=== PATIENT | female | born 1965 | race Caucasian/White ===

== ENCOUNTER 2018-06-20 06:01 | Emergency (ER) | payer BC, OTHER ==
[~2018-06-20] VITALS: Ht 165.1 cm; Wt 106.6 kg
[~2018-06-20 06:01] MED LIST: ACYC800 PO; ALBU90OI6 INH; ALLO300 PO; AMLO5 PO; ASCO500 PO; ASPI81CH PO; ATEN25 PO; CENTRUM SILVER1 EAC3 PO; CITA20 PO; CLON.1 PO; COLCRYS0.6 MG PO; DICL25ER PO; DOC250 PO; DOCU100 PO; ESTR2 PO; FLAX PO; GABA400 PO; HYDACE10B PO; LEVFLO500 PO; LIDO5TO TOP; LISHYD2012 PO; LOVA20 PO; LOVA40 PO; MAGOXI400 PO; METO10 PO; METR500 PO; ONDA4ODT MM; OXYACE5T PO; OXYACE7.5T PO; OXYC10TA19 PO; PARO10 PO; PARO20 PO; PROG100; PROG100 PO; PROM25 PO; Pepto-Bism525 MG/15 PO; Prilosec Otc20 MG PO; ROBITUSSIN PO; SACC250C PO; TRAZ50 PO; Voltaren100 GM TOP; ZESTORETIC 20-121 EA PO; ZESTRIL40 MG PO; ZOLP10 PO
[2018-06-20 07:13] LABS: BASOPHILS ABSOLUTE AUTO 0.02 K/mm3 (0.00-0.23); BASOPHILS PERCENT AUTO 0 % (0-2); EOSINOPHILS ABSOLUTE AUTO 0.01 K/mm3 (0.00-0.68); EOSINOPHILS PERCENT AUTO 0 % (0-6); Hematocrit 38.7 % (33.0-51.0); Hemoglobin 12.2 g/dL (11.5-16.0); IMMATURE GRAN ABSOLUTE AUTO 0.03 K/mm3 (0.00-0.10); IMMATURE GRAN PERCENT AUTO 0 % (0-1); LYMPHOCYTES ABSOLUTE AUTO 1.66 K/mm3 (0.84-5.20); LYMPHOCYTES PERCENT AUTO 20 % (21-46); MONOCYTES ABSOLUTE AUTO 0.43 K/mm3 (0.16-1.47); MONOCYTES PERCENT AUTO 5 % (4-13); Mean Corpuscular HGB 28.7 pg (26.0-34.0); Mean Corpuscular HGB Conc 31.5 g/dL (31.5-36.5); Mean Corpuscular Volume 91 fL (80-100); Mean Platelet Volume 11.1 fL (9.1-12.4); NEUTROPHILS ABSOLUTE AUTO 6.09 K/mm3 (1.96-9.15); NEUTROPHILS PERCENT AUTO 74 % (41-73); Platelet Count 220 K/mm3 (150-400); RDW Coefficient Variation 13.6 % (11.7-14.2); RDW Standard Deviation 45.4 fL (35.1-46.3); Red Blood Cell Count 4.25 M/mm3 (3.80-5.20); White Blood Cell Count 8.24 K/mm3 (4.00-11.30)
[2018-06-20 07:36] LABS: Alanine Aminotransfer (ALT/SGP 16 U/L (12-78); Albumin, Blood 3.4 g/dL (3.4-5.0); Albumin/Globulin Ratio 0.9 (0.8-1.8); Alk Phos 114 U/L (50-136); Anion Gap 7 mmol/L (6-16); Aspartate Aminotrans (AST/SGOT 14 U/L (12-37); Bilirubin, Total 0.3 mg/dL (0.1-1.0); Blood Urea Nitrogen 32 mg/dL (8-24); Bun/Creatinine Ratio 34.8 (12.0-20.0); CO2, Blood 26 mmol/L (21-32); Calcium, Blood 8.5 mg/dL (8.5-10.1); Chloride, Blood 101 mmol/L (98-108); Creatinine, Blood 0.92 mg/dL (0.40-1.00); Globulin, Blood 3.9 g/dL (2.2-4.0); Glomerular Filtration Rate >60 (60-); Glucose, Blood 97 mg/dL (70-99); Potassium, Blood 4.2 mmol/L (3.5-5.5); Sodium, Blood 134 mmol/L (136-145); Total Protein, Blood 7.3 g/dL (6.4-8.2); Troponin I <0.015 ng/mL (0.000-0.040)
[2018-06-20] MEDS ORDERED: Bisoprolol-Hct1 EAC2 PO (07:39)
[2018-06-20] MEDS ORDERED: FURO20 PO (07:39)
[2018-06-20] MEDS ORDERED: POTCHL10ER PO (07:39)
[2018-06-20] MEDS ORDERED: Ferrex 150 For1 EACH PO (07:40)
[2018-06-20] MEDS ORDERED: CITA20 PO (07:40)
[2018-06-20] MEDS ORDERED: PARO10 PO (07:40)
[2018-06-20] MEDS ORDERED: TIZANIDINE HCL4 MG PO (07:41)
[2018-06-20] MEDS ORDERED: DOXY100 (07:41)
[2018-06-20] MEDS ORDERED: MIDO5 PO (07:41)
[2018-06-20] MEDS ORDERED: TIROSINT25 MCG PO (07:42)
[2018-06-20] MEDS ORDERED: Norco 5-325 Ta1 EACH PO (08:43)
== END 2018-06-20 09:01 | disposition home or self-care (01) ==
LOC: ER 06:01
PROVIDERS: Emergency Medicine
DX: S52.502A Unspecified fracture of the lower end of left radius, initial encounter for closed fracture (principal); R55 Syncope and collapse; W06.XXXA Fall from bed, initial encounter; I10 Essential (primary) hypertension; Z88.8 Allergy status to other drugs, medicaments and biological substances; Z88.1 Allergy status to other antibiotic agents; Z88.0 Allergy status to penicillin; Z88.2 Allergy status to sulfonamides; Z79.899 Other long term (current) drug therapy; Z79.82 Long term (current) use of aspirin
CPT/HCPCS: 29125; 36415; 71046; 73110; 80053; 84484; 85025; 93005; 93010; 99284-25

== ENCOUNTER 2019-02-19 02:47 | Inpatient (IN) | payer BC, OTHER ==
[~2019-02-19] VITALS: Ht 167.6 cm; Wt 104.3 kg
[~2019-02-19 02:47] MED LIST changes: +Bisoprolol-Hct1 EAC2 PO; +DOXY100; +FURO20 PO; +Ferrex 150 For1 EACH PO; +LISI20 PO; +MIDO5 PO; +Norco 5-325 Ta1 EACH PO; +POTCHL10ER PO; +TIROSINT25 MCG PO; +TIZANIDINE HCL4 MG PO; -ZESTRIL40 MG PO
[2019-02-19] MEDS ORDERED: NORTHERA100 MG PO (03:04)
[2019-02-19] MEDS ORDERED: Percocet 10-321 EACH PO (03:04)
[2019-02-19 03:06] LABS: BASOPHILS ABSOLUTE AUTO 0.04 K/mm3 (0.00-0.23); BASOPHILS PERCENT AUTO 0 % (0-2); EOSINOPHILS ABSOLUTE AUTO 0.02 K/mm3 (0.00-0.68); EOSINOPHILS PERCENT AUTO 0 % (0-6); Hematocrit 38.6 % (33.0-51.0); Hemoglobin 12.2 g/dL (11.5-16.0); IMMATURE GRAN ABSOLUTE AUTO 0.08 K/mm3 (0.00-0.10); IMMATURE GRAN PERCENT AUTO 0 % (0-1); LYMPHOCYTES ABSOLUTE AUTO 3.16 K/mm3 (0.84-5.20); LYMPHOCYTES PERCENT AUTO 15 % (21-46); MONOCYTES ABSOLUTE AUTO 1.53 K/mm3 (0.16-1.47); MONOCYTES PERCENT AUTO 7 % (4-13); Mean Corpuscular HGB 29.8 pg (26.0-34.0); Mean Corpuscular HGB Conc 31.6 g/dL (31.5-36.5); Mean Corpuscular Volume 94 fL (80-100); Mean Platelet Volume 11.6 fL (9.1-12.4); NEUTROPHILS ABSOLUTE AUTO 15.86 K/mm3 (1.96-9.15); NEUTROPHILS PERCENT AUTO 77 % (41-73); Platelet Count 266 K/mm3 (150-400); RDW Coefficient Variation 14.2 % (11.7-14.2); RDW Standard Deviation 48.7 fL (35.1-46.3); White Blood Cell Count 20.69 K/mm3 (4.00-11.30)
[2019-02-19 03:26] LABS: Alanine Aminotransfer (ALT/SGP 32 U/L (12-78); Albumin, Blood 3.9 g/dL (3.4-5.0); Alk Phos 95 U/L (50-136); Anion Gap 15 mmol/L (6-16); Aspartate Aminotrans (AST/SGOT 83 U/L (12-37); Bilirubin, Total 0.4 mg/dL (0.1-1.0); Blood Urea Nitrogen 77 mg/dL (8-24); Bun/Creatinine Ratio 12.9 (12.0-20.0); CO2, Blood 21 mmol/L (21-32); Calcium, Blood 8.8 mg/dL (8.5-10.1); Chloride, Blood 100 mmol/L (98-108); Creatinine, Blood 5.96 mg/dL (0.40-1.00); Globulin, Blood 3.8 g/dL (2.2-4.0); Glomerular Filtration Rate 8 (60-); Glucose, Blood 105 mg/dL (70-99); Magnesium, Blood 2.3 mg/dL (1.6-2.4); Potassium, Blood 5.7 mmol/L (3.5-5.5); Sodium, Blood 136 mmol/L (136-145); Total Protein, Blood 7.7 g/dL (6.4-8.2); Troponin I <0.015 ng/mL (0.000-0.040)
[2019-02-19 04:28] LABS: Creatine Kinase MB 29.8 ng/mL (0.0-3.6)
[2019-02-19 04:38] LABS: Creatine Kinase MB Index 1.4 (0.0-4.0)
[2019-02-19 05:41] LABS: PCO2 Arterial 36.1 mmHg (35-45); PO2 Arterial 102 mmHg (80-100); pH Blood Arterial 7.26 (7.35-7.45)
--- NOTE | 2019-02-19 05:45 | NUR ---
PT ARRIVED TO ICU 12 FROM ER VIA [facility]. ACCOMPANIED BY HOME ENERGY CONSULTANT SUPERVISOR. PT MOVES SELF TO BED FROM [facility]. PT HAS VERY SPASTIC MOVEMENT OF ARMS AND LEGS. STATES THIS HAS BEEN GOING ON FOR AWHILE. ALSO WORKING MOUTH. PT IS LABILE WITH EMOTIONS. CRIES AT TIMES AND TALKS VERY FAST. PT STATES SHE HAS BEEN FALLING AT HOME DUE TO SPASTIC MOVEMENT. AT BEDSIDE.
--- NOTE | 2019-02-19 07:40 | NUR ---
CALLED DR. RODGERS 2X BUT CALL WENT TO VOICEMAIL, TRYING TO CALL CRITICAL PH AT 0623. DR. PYLE CALLED TO CHECK ON PT AND WAS INFORMED OF CRITICAL PH.
[2019-02-19] MEDS ORDERED: OXYC10ER PO (08:19)
[2019-02-19] MEDS ORDERED: ALLO300 PO (08:24)
[2019-02-19] MEDS ORDERED: ESTR2 (08:26)
--- NOTE | 2019-02-19 08:58 | NUR ---
CALL PLACED TO DR RODGERS RE BLADDER SCAN RESULT OF 600MLS. ORDER TO PLACE ALFARO.
--- NOTE | 2019-02-19 09:00 | NUR ---
INITIAL ASSESSMENT: PT ALERT AND ORIENTED TO FAMILY, SELF, SITUATION, PLACE. DENIES ANY PAIN. IS AFEBRILE. PT IS ABLE TO REPOSITION SELF. NEEDS TWO PERSON ASSIST TO STAND. LUNG SOUNDS COURSE THROUGHOUT. PT IS ON RA, NO COMPLAINTS OF SOB. SR, TACHY IN 100S, SBP IN THE 90S. SCDS ARE ON. PT REPORTS RED/SAMEER BM. BLADDER SCAN 600MLS THIS AM. ORDER TO PLACE ALFARO. IV IN RFA INFUSING WITH D5W WITH SODIUM BICARB AT 100MLS/HR. GI PANEL AND OCCULT ORDERED. BED IN LOWEST POSITION, CALL LIGHT WITHIN REACH
[2019-02-19 10:23] LABS: Albumin, Blood 3.3 g/dL (3.4-5.0); Anion Gap 12 mmol/L (6-16); Blood Urea Nitrogen 75 mg/dL (8-24); Bun/Creatinine Ratio 13.9 (12.0-20.0); CO2, Blood 19 mmol/L (21-32); Calcium, Blood 7.6 mg/dL (8.5-10.1); Chloride, Blood 107 mmol/L (98-108); Creatinine, Blood 5.38 mg/dL (0.40-1.00); Glomerular Filtration Rate 9 (60-); Glucose, Blood 119 mg/dL (70-99); Phosphorus, Blood 6.3 mg/dL (2.5-4.9); Potassium, Blood 4.1 mmol/L (3.5-5.5); Sodium, Blood 138 mmol/L (136-145)
[2019-02-19 11:00] LABS: Source, Urine Clean Catch
[2019-02-19 11:03] LABS: Blood, Urine 2+ (Neg); Glucose Qualitative, Urine Neg (Neg); Ketones, Urine 1+ (Neg); Leukocyte Esterase, Urine Neg (Neg); Nitrite, Urine Neg (Neg); Protein, Urine 2+ (Neg); Urobilinogen, Urine NORM (Normal)
[2019-02-19] MEDS ORDERED: BUSP10 PO (11:16)
[2019-02-19] MEDS ORDERED: BACL10 PO (11:18)
[2019-02-19] MEDS ORDERED: BENZ100A PO (11:21)
[2019-02-19] MEDS ORDERED: ACYC800 PO (11:23)
[2019-02-19] MEDS ORDERED: GABA400 PO (11:27)
[2019-02-19] MEDS ORDERED: Bisoprolol Fumar5 MG PO (11:31)
[2019-02-19] MEDS ORDERED: ESTR2 PO (11:34)
[2019-02-19 11:42] LABS: Appearance, Urine Hazy (Clear); Color, Urine Yellow (P-Yellow)
[2019-02-19 11:43] LABS: Bilirubin, Urine 2+ (Neg)
[2019-02-19 11:48] LABS: U Amphetamine Screen DETECTED; U Barbituate Screen Not Detected; U Benzodiazapine Screen Not Detected; U Buprenorphine Screen Not Detected; U Cannabinoids Screen Not Detected; U Cocaine Screen Not Detected; U Methadone Screen Not Detected; U Methamphetamine Screen DETECTED; U Opiates Screen DETECTED; U Oxycodone Screen Not Detected; U Phencyclidine Screen Not Detected; U Propoxyphene Screen Not Detected
[2019-02-19 11:52] LABS: Red Blood Cells, Urine 0-2 /hpf (0-2); White Blood Cells, Urine Not Seen /hpf (0-5)
[2019-02-19 11:53] LABS: Amorphous Mod (0-Heavy); Bacteria Not Seen /hpf; Hyaline Casts TNTC /lpf (0-2); Mucus Heavy (0-Heavy); Squamous Epithelial Cells Mod /hpf (Few)
--- NOTE | 2019-02-19 12:44 | NUR ---
CALL PLACED TO DR LAST RE PT UPDATE. 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 NO ORDERS RECEIVED AT THIS TIME. DR. LAST STATED THAT HE WOULD BE IN THIS AFTERNOON TO SEE THE PATIENT.
--- NOTE | 2019-02-19 13:08 | NUR ---
CALL PLACED TO DR. RODGERS RE LAB UPDATE: K+ 4.0, CO2 21. TELEPHONE ORDER RECEIVED TO DECREASE BICARB TO 75 MLS/HR.
--- NOTE | 2019-02-19 13:55 | NUR ---
DR. LAST IN TO SEE PT. INFORMED PT AND OF + UA FOR METH. PT REPORTS SHE DOES NOT KNOW HOW METH GOT INTO HER SYSTEM AND INDICATED THAT THE ONLY PERSON SHE HAS SEEN IN THE LAST FEW DAYS IS A FRIEND. ORDERS FROM DR. LAST RECEIVED FOR RENAL ULTRASOUND AND MEDICATION TO HELP RELAX THE PATIENT.
--- NOTE | 2019-02-19 15:52 | NUR ---
CALL PLACED TO DR. LAST RE OXYCODONE AND ABD CT SCAN. ORDER RECEIVED TO START OXYCODONE HOME DOSE AND SC ABD CT SCAN
--- NOTE | 2019-02-19 18:26 | NUR ---
SHIFT SUMMARY: PT A&O X 3 HOWEVER FORGETFUL AT TIMES, ANXIOUS. AFEBRILE. C/O 8/10 PAIN. LUNG SOUNDS COURSE THROUGHOUT, SATTING >90% ON RA. PT IN SR/ST. SBP IN THE 110-120S, HR TACHY 100-110S. PT REPORTS RED/SAMEER STOOL YESTERDAY HOWEVER NO BM TODAY. BOWEL TONES ARE PRESENT. BLADDER SCAN THIS AM REVEALED 600MLS RETAINED URINE, ALFARO PLACED. ALFARO IS PATENT DRAINING DARK YELLOW URINE. 20G IVS TO RFA AND ANGE. RFA IV INFUSING D5W WITH SODIUM BICARB AT 75ML/HR. GI PANEL AND OCCULT GUAC ORDERED-STILL NEEDS COLLECTING. FAMILY AT BEDSIDE THE MAJORITY OF DAY. BED LOW, CALL LIGHT IN REACH.
--- NOTE | 2019-02-19 18:45 | NUR ---
PT APPEARS TO BE SLEEPING, NO JERKY, SPASTIC MOVEMENTS AT THIS TIME.
--- NOTE | 2019-02-19 18:55 | NUR ---
I AGREE WITH VIJAY TALAVERA'S NOTES.
[2019-02-19 19:39] LABS: Eosinophils-Raw #,Urine 0
--- NOTE | 2019-02-19 20:00 | NUR ---
PT IS SLEEPING. DIFFICULT TO AROUSE AND IS CLAMMY. WILL AROUSE WITH STERNAL RUB BUT QUICKLY FALLS BACK TO SLEEP. BP IS LOW HAVE A 250ML BOLUS RUNNING TO SEE IF THAT HELPS, WILL BE CONTACTING MD. PT AND SAY THAT THIS HAS BEEN AN ONGOING ISSUE AT NIGHT AT HOME. STATES BP WILL BE IN THE 70'S SYSTOLICALLY AND PT WILL BE DIFFICULT TO AROUSE. MINIMAL URINE OUTPUT WELL. PT DID RECEIVE OXYCODONE AND ATIVAN THIS EVENING AND HAD NOT SLEPT MUCH IN THE LAST FEW DAYS DUE TO SPASTIC MOVEMENTS.
--- NOTE | 2019-02-19 20:45 | NUR ---
CALLED DR. SMILEY TO LET HIM KNOW BP IS LOW AND PT IS DIFFICULT TO AROUSE. NEW ORDERS FOR LR BOLUS RECEIVED.
--- NOTE | 2019-02-19 22:30 | NUR ---
CALLED DR. SMILEY AGAIN ABOUT BP CONTINUING TO BE LOW AFTER 1L BOLUS. ANOTHER BOLUS WAS ORDERED AND STARTED. CALLED DR. RODGERS PER DR. SMILEY WHO ORDERED ANOTHER BOLUS AND HOME NORTHERA DOSE. WILL CALL TO SEE IF HE CAN BRING THAT MEDICATION IN FROM HOME TONIGHT. PT IS STILL DIFFICULT TO AROUSE BUT MAINTAINING AIRWAY.
--- NOTE | 2019-02-19 22:36 | NUR ---
CALLED WILIAM THE AND HE WILL BRING MICHAEL IN TONIGHT.
[2019-02-19 23:03] LABS: Albumin, Blood 2.7 g/dL (3.4-5.0); Anion Gap 9 mmol/L (6-16); Blood Urea Nitrogen 72 mg/dL (8-24); Bun/Creatinine Ratio 18.5 (12.0-20.0); CO2, Blood 24 mmol/L (21-32); Calcium, Blood 7.3 mg/dL (8.5-10.1); Chloride, Blood 106 mmol/L (98-108); Creatinine, Blood 3.89 mg/dL (0.40-1.00); Glomerular Filtration Rate 13 (60-); Glucose, Blood 150 mg/dL (70-99); Phosphorus, Blood 3.6 mg/dL (2.5-4.9); Potassium, Blood 3.4 mmol/L (3.5-5.5); Sodium, Blood 139 mmol/L (136-145)
--- NOTE | 2019-02-19 23:14 | NUR ---
CALLED DR. RODGERS TO REPORT LAB RESULTS. NEW ORDERS FOR MAINTENANCE FLUIDS TO BE CHANGED TO LR AT 100ML/HR. WILL START WHEN BOLUS IS COMPLETE. LABS ORDERED FOR AM.
--- NOTE | 2019-02-19 23:53 | NUR ---
BROUGHT IN [facility]. DOSE GIVEN. PT IS EASIER TO AROUSE FROM SLEEP NOW. SLIGHTLY CONFUSED AND CONVERSATION DOESN'T ALWAYS MAKE SENSE.
--- NOTE | 2019-02-20 01:43 | NUR ---
PT IS HYOTENSIVE WITH SBP IN THE 80'S WHILE SLEEPING. WHEN WOKE UP FOR BP SBP IS IN THE 100'S. URINE OUTPUT IS IMPROVING.
--- NOTE | 2019-02-20 02:11 | NUR ---
NOTIFED DR. PYLE ON HYPOTENSION. NEW ORDERS TO INCREASE LR TO 125ML/HR, HAVE PICC PLACED IN AM IF STILL HYPOTENSIVE, AND D/C OXYCODONE AND ATIVAN.
[2019-02-20 03:39] LABS: BASOPHILS ABSOLUTE AUTO 0.03 K/mm3 (0.00-0.23); BASOPHILS PERCENT AUTO 0 % (0-2); EOSINOPHILS ABSOLUTE AUTO 0.06 K/mm3 (0.00-0.68); EOSINOPHILS PERCENT AUTO 1 % (0-6); Hematocrit 31.2 % (33.0-51.0); Hemoglobin 9.9 g/dL (11.5-16.0); IMMATURE GRAN ABSOLUTE AUTO 0.03 K/mm3 (0.00-0.10); IMMATURE GRAN PERCENT AUTO 0 % (0-1); LYMPHOCYTES ABSOLUTE AUTO 2.09 K/mm3 (0.84-5.20); LYMPHOCYTES PERCENT AUTO 20 % (21-46); MONOCYTES PERCENT AUTO 8 % (4-13); Mean Corpuscular HGB 29.8 pg (26.0-34.0); Mean Corpuscular HGB Conc 31.7 g/dL (31.5-36.5); Mean Corpuscular Volume 94 fL (80-100); Mean Platelet Volume 11.3 fL (9.1-12.4); NEUTROPHILS PERCENT AUTO 71 % (41-73); Platelet Count 152 K/mm3 (150-400); RDW Coefficient Variation 14.2 % (11.7-14.2); Red Blood Cell Count 3.32 M/mm3 (3.80-5.20); White Blood Cell Count 10.41 K/mm3 (4.00-11.30)
[2019-02-20 03:56] LABS: Albumin, Blood 2.8 g/dL (3.4-5.0); Albumin/Globulin Ratio 0.9 (0.8-1.8); Bilirubin, Total 0.1 mg/dL (0.1-1.0); Bun/Creatinine Ratio 21.7 (12.0-20.0); C-REACTIVE PROTEIN, EXT RANGE 16.7 mg/dL (0.000-0.300); Calcium, Blood 7.4 mg/dL (8.5-10.1); Creatinine, Blood 2.95 mg/dL (0.40-1.00); Globulin, Blood 3.1 g/dL (2.2-4.0); Magnesium, Blood 1.7 mg/dL (1.6-2.4); Phosphorus, Blood 2.7 mg/dL (2.5-4.9); Potassium, Blood 3.5 mmol/L (3.5-5.5); Total Protein, Blood 5.9 g/dL (6.4-8.2)
--- NOTE | 2019-02-20 06:28 | NUR ---
SUMMARY PT AWAKE AND ORIENTED THIS AM. T/O THE NIGHT PT HAD BEEN DIFFICULT TO AROUSE AND BP HAD BEEN LOW. THIS AM BP HAS IMRPOVED. PT GOT 2.5L OF BOLUS DURING THE NIGHT AND MAINTENENCE FLUIDS INCREASED TO 125ML/HR. RECEIVED HOME DOSE OF NORTHERA WELL. URINE OUTPUT IMPROVED. SPASTIC JERKING MOVEMENTS HAVE DAMPENED WELL. NO SIGN OF DISTRESS.
--- NOTE | 2019-02-20 08:00 | NUR ---
INITIAL ASSESSMENT PATIENT PLAYING ON PHONE, RESTING QUIETLY IN BED UPON ENTERING ROOM. PATIENT ALERT AND ORIENTED X 4, AFEBRILE. INVOLUNTARY, SPASTIC MOVEMENTS MUCH IMPROVED TODAY. PATIENT HAS FULL ROM TO ALL EXTREMITIES. PATIENT IS UNSTEADY ON FEET AND NEEDS 2 PERSON ASSIST TO TRANSFER. PATIENT COMPLAINS OF CHRONIC LOWER BACK PAIN. PATIENT SATTING 90% AND GREATER ON RA. LUNGS CLEAR IN UPPER LOBES AND DIMINISHED IN LOWER LOBES. PATIENT STATES SHE HAS OCCASIONALLY PRODUCTIVE COUGH. STATES SHE HAS BEEN COUGHING UP THICK MUCUS BUT THAT SHE DOESN'T KNOW THE COLOR BECAUSE SHE HAS BEEN SWALLOWING IT. PATIENT IN SR TO ST. HR 90S TO LOW 100S. BP STABLE WITH SBP IN THE 120S. SCDS IN PLACE. PATIENT HAS NOT HAD BM SINCE ADMIT BUT STATES THAT SHE HAD A RED/ SAMEER COLORED BM ON 02/18. ABDOMEN IS MILDLY DISTENDED, SOFT, TENDER TO PALPATION, WITH NORMOACTIVE BS NOTED. ALFARO IN PLACE FOR RETENTION; DRAINING YELLOW/ GREEN COLORED URINE. SCATTERED BRUISES NOTED T/O BODY. OTHERWISE, SKIN APPEARS CLEAN, DRY, INTACT. LR INFUSING AT 125 MLS/ HOUR. BED LOW, CALL LIGHT IN REACH. WILL CONTINUE TO MONITOR PATIENT FREQUENTLY THROUGHOUT SHIFT.
--- NOTE | 2019-02-20 10:39 | NUR ---
DR. LAST HERE TO SEE PATIENT. UPDATED ON PATIENT STATUS. INFORMED THAT PATIENT WAS UP THIS MORNING TO EAT BREAKFAST AND THAT INVOLUNTARY, SPONTANEOUS MOVEMENTS ARE MUCH IMPROVED THIS AM. INFORMED THAT PATIENT WENT BACK TO SLEEP AFTER BREAKFAST. INFORMED THAT PATIENT HAD EPISODES OF HYPOTENSION WHILE SLEEPING ON AQUATIC PERFORMER. INFORMED THAT AQUATIC PERFORMER RN REPORTED PATIENT VERY DIFFICULT TO WAKE FROM SLEEP, JUST AND PATIENT STATED SHE NORMALLY AT HOME. INFORMED THAT PATIENT RECEIVED ONE DOSE OF PRN ATIVAN AND ONE DOSE OF PRN OXYCODONE AT BEDTIME. INFORMED THAT AQUATIC PERFORMER DC'D PRN ATIVAN AND OXYCODONE BELIEVED PATIENT HARD TO WAKE BECAUSE OF THESE MEDS BEING GIVEN. INFORMED THAT PATIENT RECEIVED 2.5 L NS BOLUS, STARTED ON LR AT 125 MLS/ HOUR AND THAT RODGERS RESTARTED HOME MED NORTHERA AT 200 MG TID FOR HYPOTENSION. INFORMED THAT PATIENT HAS NOT BEEN HYPOTENSIVE THIS AM, EVEN THOUGH IS PRESENTLY SLEEPING. TALKED TO DR. LAST ABOUT PATIENT'S HOME MEDICATIONS AND ORDERS RECEIVED TO RESTART SOME THEM. NOW IN ROOM TO SEE PATIENT.
--- NOTE | 2019-02-20 12:24 | NUR ---
PATIENT RESTING QUIETLY IN BED. PATIENT JUST FINISHED LUNCH; ATE 100%. IN ROOM AT BEDSIDE. PATIENT STATES PAIN IS BETTER SINCE RECEIVING OXYCODONE. VITAL SIGNS STABLE. PATIENT CONTINUES TO STATE THAT SHE THINKS SHE GOT METH IN HER SYSTEM FROM A FRIEND PUTTING IT IN HER DRINK. NO ACUTE CHANGES TO NOTE ON AT THIS TIME. WILL CONTINUE TO MONITOR.
--- NOTE | 2019-02-20 16:29 | NUR ---
PATIENT RESTING IN BED QUIETLY, VISITING WITH DAUGHTER AND . VITAL SIGNS STABLE. NO ACUTE CHANGES TO NOTE ON. WILL CONTINUE TO MONITOR.
--- NOTE | 2019-02-20 17:41 | NUR ---
SHIFT SUMMARY PATIENT REMAINED ALERT AND ORIENTED. PATIENT HAD VERY LIGHT INVOLUNTARY SPASTIC MOVEMENTS THIS AM. PATIENT NOW AT BASELINE PER SELF AND FAMILY. PATIENT REMAINED AFEBRILE. PATIENT GIVEN SCHEDULED OXYCODONE FOR CHRONIC LOWER BACK PAIN. PATIENT REMAINED SATTING 90% AND GREATER ON RA. PATIENT REMAINED IN SR TO ST, HR 90S TO LOW 100S. BP REMAINED STABLE. PATIENT DID NOT HAVE BM THIS SHIFT. PATIENT TOLERATING RENAL DIET WELL AND HAS GOOD APPETITE. ALFARO REMAINED DRAINING YELLOW URINE. NO CHANGE IN SKIN. PATIENT REPOSITIONED SELF IN BED T/O SHIFT. LR REMAINS INFUSING AT 125 MLS. PATIENT HAD ECHO THIS SHIFT. OFFERED BED BATH BUT WANTED TO WAIT UNTIL LATER AND THEN FAMILY HERE TO VISIT AGAIN. PATIENT HAS NO COMPLAINTS AT THIS TIME. BED LOW, CALL LIGHT IN REACH. WILL CONTINUE TO MONITOR PATIENT FREQUENTLY UNTIL REPORT GIVEN TO ONCOMING PACKAGING MANAGER NURSE SHORTLY.
--- NOTE | 2019-02-20 19:27 | NUR ---
PT SLEEPING UPON ENTERING ROOM. AROUSES EASILY TO VERBAL. HOLDS NORMAL CONVERSATION AND IS ABLE TO VERBALIZED MEDICATIONS AND WHAT THEY ARE ORDERED FOR. INVOLUNTARY SPASTIC MOVEMENTS HAVE IMPROVED. PT REQUESTING NIGHT MEDS A LITTLE EARLY BECAUSE SHE WANTS TO GET SOME SLEEP. HELD NORTHERA AT THE MOMENT DUE TO BP OUTSIDE OF PARAMETERS. NO SIGN OF DISTRESS AND NO REQUESTS.
[2019-02-21 03:07] LABS: BASOPHILS ABSOLUTE AUTO 0.01 K/mm3 (0.00-0.23); BASOPHILS PERCENT AUTO 0 % (0-2); EOSINOPHILS ABSOLUTE AUTO 0.08 K/mm3 (0.00-0.68); EOSINOPHILS PERCENT AUTO 1 % (0-6); Hematocrit 28.6 % (33.0-51.0); IMMATURE GRAN ABSOLUTE AUTO 0.01 K/mm3 (0.00-0.10); IMMATURE GRAN PERCENT AUTO 0 % (0-1); LYMPHOCYTES ABSOLUTE AUTO 1.66 K/mm3 (0.84-5.20); LYMPHOCYTES PERCENT AUTO 25 % (21-46); MONOCYTES PERCENT AUTO 8 % (4-13); Mean Corpuscular HGB 29.6 pg (26.0-34.0); Mean Corpuscular HGB Conc 31.5 g/dL (31.5-36.5); Mean Corpuscular Volume 94 fL (80-100); Mean Platelet Volume 11.4 fL (9.1-12.4); NEUTROPHILS ABSOLUTE AUTO 4.31 K/mm3 (1.96-9.15); NEUTROPHILS PERCENT AUTO 66 % (41-73); Platelet Count 139 K/mm3 (150-400); RDW Coefficient Variation 14.2 % (11.7-14.2); RDW Standard Deviation 48.4 fL (35.1-46.3); Red Blood Cell Count 3.04 M/mm3 (3.80-5.20); White Blood Cell Count 6.57 K/mm3 (4.00-11.30)
[2019-02-21 03:26] LABS: Alanine Aminotransfer (ALT/SGP 27 U/L (12-78); Albumin, Blood 2.5 g/dL (3.4-5.0); Albumin/Globulin Ratio 0.8 (0.8-1.8); Alk Phos 80 U/L (50-136); Anion Gap 5 mmol/L (6-16); Aspartate Aminotrans (AST/SGOT 39 U/L (12-37); Blood Urea Nitrogen 33 mg/dL (8-24); Bun/Creatinine Ratio 29.5 (12.0-20.0); CO2, Blood 30 mmol/L (21-32); Calcium, Blood 7.9 mg/dL (8.5-10.1); Chloride, Blood 109 mmol/L (98-108); Creatinine, Blood 1.12 mg/dL (0.40-1.00); Globulin, Blood 3.1 g/dL (2.2-4.0); Glomerular Filtration Rate 54 (60-); Glucose, Blood 116 mg/dL (70-99); Magnesium, Blood 1.2 mg/dL (1.6-2.4); Phosphorus, Blood 1.5 mg/dL (2.5-4.9); Potassium, Blood 3.7 mmol/L (3.5-5.5); Sodium, Blood 144 mmol/L (136-145); Total Protein, Blood 5.6 g/dL (6.4-8.2)
[2019-02-21 03:35] LABS: Bilirubin, Total <0.1 mg/dL (0.1-1.0)
--- NOTE | 2019-02-21 06:37 | NUR ---
SUMMARY PT RESTING IN BED. C/O NOT SLEEPING WELL. C/O 9/10 PAIN ALL OVER THIS AM. GAVE OXYCODONE EARLY DUE TO PT BEING "MISERABLE". CALLED DR. RODGERS ABOUT LOW MAG AND PHOS, NEW ORDER RECEIVED FOR SODIUM PHOS IV. PT'S BP ALSO CREEPING UP THIS AM AND LET DR. RODGERS KNOW ABOUT THIS, HE ORDERED 5MG LISINOPRIL. NO OTHER ISSUES OVER NIGHT.
--- NOTE | 2019-02-21 07:05 | NUR ---
ASSUMED CARE PATIENT IS SLEEPING. HAS ASKED NOT TO BE AWAKENED FOR BREAKFAST. HYPERTENSIVE WHILE SLEEPING WITH SBP 180'S. DAILY ZESTRIL HAS BEEN RESTARTED. ALFARO CATHETER IN PLACE D/T URINARY RETENTION. WILL DC WHEN PATIENT IS AWAKE.
--- NOTE | 2019-02-21 07:40 | NUR ---
MD VISIT DR. RODGERS IN. LR DECREASED TO 50 ML/HR.
--- NOTE | 2019-02-21 08:28 | NUR ---
MD VISIT DR Sony MEHTA. REQUEST FOR CONFIRMATION ON URINE TOX (METH)
--- NOTE | 2019-02-21 09:36 | NUR ---
PATIENT INSTRUCTED NOT TO TAKE NORTHERA WITHOUT CHECKING HER BP. SHE REPORTS SHE DOES TAKE HER BP. ALFARO CATHETER REMOVED BY EZEKIEL YING. PIV X1 DC'D WNL. TO THE SHOWER WITH EZEKIEL. PLAN IS FOR DISCHARGE TODAY. ORIGINAL URINE SPECIMEN NOT AVAILABLE TO CONFIRM FOR METHAMPHETAMINE. PATIENT ASKED TO PROVIDE ANOTHER SAMPLE. PHARMACIST REPORTS THAT NORTHERA COULD SHOW AN INITIAL POSITIVE AND LAB ADVISES THAT IT WOULD BE RULED OUT BY THE CONFIRMATION
--- NOTE | 2019-02-21 11:05 | NUR ---
MESSAGE LEFT FOR DR. MEHTA RE: HYPERTENSION
--- NOTE | 2019-02-21 12:36 | NUR ---
IN. DR. MEHTA NOTIFIED THAT HE WOULD LIKE TO TALK TO HIM PRIOR TO DISCHARGE. ADVISED IT MAY BE AFTER 5 PM
--- NOTE | 2019-02-21 14:22 | NUR ---
UPDATED DR. MEHTA ON BP
[2019-02-21] MEDS ORDERED: ACET325 PO (15:07)
--- NOTE | 2019-02-21 15:14 | NUR ---
MD VISIT DR. MEHTA IN TO TALK WITH
--- NOTE | 2019-02-21 15:43 | NUR ---
Per admit trigger, I met with Marci to offer information about Advanced Directive. she took the information and allowed me to pray for continued healing. She is being d/c this afternoon.
--- NOTE | 2019-02-21 15:53 | NUR ---
DISCHARGE INSTRUCTIONS GIVEN AND ACKNOWLEDGED. PIV DC'D WNL. TAKEN IN W/C TO CAR AT FRONT ENTRANCE
== END 2019-02-21 15:30 | disposition home or self-care (01) | DRG 683 ==
LOC: ER 02:47 → ICUW 05:39
PROVIDERS: Emergency Medicine; Hospitalist; Internal Medicine Nephrology; ADMIT Family Medicine
DX: N17.9 Acute kidney failure, unspecified (principal); M62.82 Rhabdomyolysis; F11.20 Opioid dependence, uncomplicated; E87.2 Acidosis; E86.9 Volume depletion, unspecified; F19.90 Other psychoactive substance use, unspecified, uncomplicated; G89.4 Chronic pain syndrome; E87.5 Hyperkalemia; E83.42 Hypomagnesemia; E83.39 Other disorders of phosphorus metabolism; E03.9 Hypothyroidism, unspecified; I12.9 Hypertensive chronic kidney disease with stage 1 through stage 4 chronic kidney disease, or unspecified chronic kidney disease; N18.9 Chronic kidney disease, unspecified; D63.1 Anemia in chronic kidney disease; E21.3 Hyperparathyroidism, unspecified; E86.0 Dehydration; Z88.0 Allergy status to penicillin; Z88.2 Allergy status to sulfonamides; Z88.8 Allergy status to other drugs, medicaments and biological substances; Z79.82 Long term (current) use of aspirin; Z79.899 Other long term (current) drug therapy
CPT/HCPCS: 36415; 36600; 51702; 51798; 71045; 76770; 80053; 80069; 81001; 82140; 82374; 82436; 82550; 82553; 82803; 83605; 83735; 83880; 84100; 84132; 84145; 84300; 84443; 84484; 85025; 85651; 86140; 87040; 87205; 93005; 93010; 93306; 96360; 96361; 99285-25; J0881; J3475; J7030; J7060; J7070; J7120

== ENCOUNTER 2019-04-29 06:22 | Inpatient (IN) | payer BC, OTHER ==
[~2019-04-29] VITALS: Ht 167.6 cm; Wt 98.1 kg
[~2019-04-29 06:22] MED LIST changes: +ACET325 PO; +BACL10 PO; +BENZ100A PO; +BUSP10 PO; +Bisoprolol Fumar5 MG PO; +ESTR2; +NORTHERA100 MG PO; +OXYC10ER PO; +Percocet 10-321 EACH PO
[2019-04-29] MEDS ORDERED: ASPI81CH PO (06:42)
[2019-04-29] MEDS ORDERED: PARO20 PO (06:43)
[2019-04-29] MEDS ORDERED: TIZA4 PO (06:43)
[2019-04-29] MEDS ORDERED: NORTHERA300 MG PO (06:43)
[2019-04-29] MEDS ORDERED: ACYC800 (06:44)
[2019-04-29] MEDS ORDERED: LOVA40 PO (06:44)
[2019-04-29] MEDS ORDERED: MAGNESIUM OXID500 MG PO (06:44)
[2019-04-29] MEDS ORDERED: LISI20 PO (06:44)
[2019-04-29] MEDS ORDERED: OMEPRAZOLE20 MG PO (06:45)
[2019-04-29] MEDS ORDERED: OXYC10ER PO (06:45)
[2019-04-29] MEDS ORDERED: BENZ100A PO (06:47)
[2019-04-29 06:55] LABS: BASOPHILS ABSOLUTE AUTO 0.02 K/mm3 (0.00-0.23); BASOPHILS PERCENT AUTO 0 % (0-2); EOSINOPHILS ABSOLUTE AUTO 0.08 K/mm3 (0.00-0.68); EOSINOPHILS PERCENT AUTO 1 % (0-6); Hematocrit 44.2 % (33.0-51.0); Hemoglobin 14.2 g/dL (11.5-16.0); IMMATURE GRAN ABSOLUTE AUTO 0.01 K/mm3 (0.00-0.10); IMMATURE GRAN PERCENT AUTO 0 % (0-1); LYMPHOCYTES PERCENT AUTO 42 % (21-46); MONOCYTES ABSOLUTE AUTO 0.41 K/mm3 (0.16-1.47); MONOCYTES PERCENT AUTO 6 % (4-13); Mean Corpuscular HGB 29.9 pg (26.0-34.0); Mean Corpuscular HGB Conc 32.1 g/dL (31.5-36.5); Mean Corpuscular Volume 93 fL (80-100); Mean Platelet Volume 11.6 fL (9.1-12.4); NEUTROPHILS ABSOLUTE AUTO 3.62 K/mm3 (1.96-9.15); NEUTROPHILS PERCENT AUTO 51 % (41-73); Platelet Count 240 K/mm3 (150-400); RDW Coefficient Variation 13.2 % (11.7-14.2); RDW Standard Deviation 45.1 fL (35.1-46.3); Red Blood Cell Count 4.75 M/mm3 (3.80-5.20); White Blood Cell Count 7.14 K/mm3 (4.00-11.30)
[2019-04-29 07:09] LABS: Albumin, Blood 4.3 g/dL (3.4-5.0); Bilirubin, Total 0.3 mg/dL (0.1-1.0); Bun/Creatinine Ratio 22.3 (12.0-20.0); Calcium, Blood 9.9 mg/dL (8.5-10.1); Creatinine, Blood 1.03 mg/dL (0.40-1.00); Globulin, Blood 4.2 g/dL (2.2-4.0); Potassium, Blood 4.3 mmol/L (3.5-5.5); Total Protein, Blood 8.5 g/dL (6.4-8.2)
[2019-04-29 08:27] LABS: U Amphetamine Screen Not Detected; U Barbituate Screen Not Detected; U Benzodiazapine Screen Not Detected; U Buprenorphine Screen Not Detected; U Cannabinoids Screen Not Detected; U Cocaine Screen Not Detected; U Methadone Screen Not Detected; U Methamphetamine Screen Not Detected; U Opiates Screen DETECTED; U Oxycodone Screen DETECTED; U Phencyclidine Screen Not Detected; U Propoxyphene Screen Not Detected
--- NOTE | 2019-04-29 08:30 | NUR ---
PT ADMITTED TO UNIT FROM ER AT 0810 FOR ANGIOEDEMA. PT ARRIVES INTUBATED, ETT 7.5, 24 AT LIP. VENT SETTINGS AC 14/400/5/25%. PROPOFOL INFUSING AT 25 MCG/KG/MIN AND VERSED AT 5 MG/HR. TEMP PROBE ALFARO IN PLACED, PATENT AND DRAINING TO GRAVITY. PT'S EYES OPEN SPONTANEOUSLY. PULLING AT RESTRAINTS, ORIENTED TO EVENT AND UNIT. ABLE TO REDIRECT. FOLLOWING DIRECTIONS. SWELLING NOTED TO TONGUE. OGT PLACED, VERIFIED PLACEMENT BY AUSCULTATION, GASTRIC ASPIRATION. PLACED TO LOW INTERMITTANT SUCTION. LUNGS CLEAR. PT P/W/D. ABD ROUND, SOFT, NON TENDER. BT X 4. MAEW. VSS. WILL CONTINUE TO MONITOR.
--- NOTE | 2019-04-29 09:31 | NUR ---
DR SERRA AT BEDSIDE. WILIAM REPORTS HE SAW PT AT 0500 THIS AM c SWELLING TO MOUTH, TONGUE. STATES HE CALLED EMS. REPORTS HX OF SIMILAR SYMPTOMS APPROX 1 YEAR AGO, WAS TOLD THAT WAS D/T MIDODRINE. MEDICATION WAS D/C'D. REPORTS RECENT ADMISSION FOR KIDNEY FAILURE.
--- NOTE | 2019-04-29 12:52 | NUR ---
PT REMAINS INTUBATED. VENT SETTINGS AC 18/400/5/25%. DIFFICULTIES ACHIEVING ADEQUATE SEDATION. CURRENTLY PROPOFOL INFUSING AT 50MCG/KG/HR AND FENTANYL INCREASED FROM 25 MCG/HR TO 50 MCG/HR VIA FENTANYL PUMP. PT APPEARS TO REST WHEN UNDISTURBED, c MINIMAL DISRUPTIONS, PT OPENS EYES, ATTEMPTS TO TALK, SWALLOWS AND GAGS. REQUESTS TO WRITE MESSAGES ON CLIPBOARD. FOLLOWS DIRECTIONS. STAYS CALM AND COOPERATIVE WHILE AWAKE. WILL CONTINUE TO ADJUST FOR ADEQUATE SEDATION.
[2019-04-29 13:28] LABS: Base Excess Venous -0.5 mmol/L; Bicarbonate Venous 23.3 mmol/L (24.0-30.0); PCO2 Venous 49.1 mmHg (38-42); pH Blood Venous 7.32 (7.34-7.37)
--- NOTE | 2019-04-29 14:01 | NUR ---
Spiritual care visit attempted. Upon receiving an admit referral, I attempt to visit patient. Patient is in the process of being sedated and patient's RN recommends coming back when patient is more able to talk . I will continue to remain available to patient and family.
--- NOTE | 2019-04-29 15:34 | NUR ---
CONTINUE TO HAVE DIFFICULTIES c SEDATION. PROPOFOL INFUSING AT 50 MCG/KG/MIN, FENTANYL AT 100 MCG/HR. DISCUSSED c DR SERRA. PLAN TO INCREASE MAX DOSE OF FENTANYL TO 200 MCG/HR. PHARMACY OBTAINING ADDITIONAL BAG D/T HARD LOCK OUT LIMITS ON MAJOR SALES ASSOCIATE. PT CONTINUES TO BE WIDE AWAKE. PRESSING CALL LIGHT. REQUESTING TO WRITE NOTES. ASSISTED MULTIPLE TIMES. MOST REQUESTS ARE FOR FOOD. EDUCATED PT THAT SHE IS UNABLE TO EAT AT THIS TIME. DURING ONE EPISODE, RIGHT WRIST RESTRAINT IS REMOVED SO PT CAN WRITE ON CLIPBOARD, PT REACHES UP FOR ETT. STRONGLY EDUCATED PT ON THE COMPLICATIONS OF SELF EXTUBATION AND THE DIFFICULTIES WE WOULD ENCOUNTER c REINTUBATION. PT APOLOGETIC AND VERBALIZED UNDERSTANDING.
--- NOTE | 2019-04-29 17:10 | NUR ---
SHIFT SUMMARY PT REMAINS INTUBATED AND SEDATED. VENT SETTINGS AC 18/400/5/25%. PT REMAINS A&O, FOLLOWING COMMANDS. CONTINUES TO TRY TO COMMUNICATE c FAMILY AND STAFF. ENCOURAGED PT TO NOT ATTEMPT TO TALK. NEEDS REPETITIVE REMINDERS TO REST VOICE AND NOT ATTEMPT TO TALK. PROVIDED CLIPBOARD AND PEN FOR COMMUNICATION. PT APPERARS TO UNDERSTAND PLAN OF CARE AND POSSIBLE EXTUBATION TOMORROW WELL IMPORTANCE OF NOT SELF EXTUBATING. LUNGS CLEAR. PT NO LONGER DROOLING. SWELLING TO LEFT SIDE OF JAW APPEARS SOFTER AND DECREASED IN SIZE. ATTEMPTED TO GIVE TYLENOL THROUGH OGT FOR FEVER, PT REPORTED NAUSEA, BEGAIN GAGGLING. PLACED OGT TO LOW INTERMITTANT SUCTION AND MEDICATED c ZOFRAN. NASUEA RESOLVED. DR SERRA AT BEDSIDE FOR REASSESSMENT. PLAN TO CONTINUE PROPOFOL AND FENTANYL FOR SEDATION TONIGHT AND PREVENT SELF EXTUBATION. CURRENTLY PROPOFOL INFUSING AT 50 MCG/KG/MIN AND FENTANYL AT MAX DOSE OF 200 MCG/HR. ALFARO PATENT AND DRAINING TO GRAVITY. REPORT TO ONCOMING NURSE.
--- NOTE | 2019-04-29 20:42 | NUR ---
[place] of Care: Care assumed at 1900hr. Patient intubated with 7.0 ETT, 24cm at lip. Ventilator to AC 18/400/5/25%, O2- 94-96% tolerating vent without difficulty. Patient alert, despite Propofol gtt at 50mcg/kg/min, and fentanyl gtt at 200mcg/hr. Patient able mouths words and write needs on paper. Appeared anxious, slightly restless in bed. Per written communication, patient anxious r/t ET tube, restraints, and inability to speak. Patient educated and conveys understanding for the need for ET tube and restraints. Patient also request Ativan. Call placed to Dr. Salazar, received order for prn ativan, x1 dose given approx 2000hr with good effect noted. Patient now appears calm/sleeping. Bilateral peripheral IV's patent and intact, in fusing without difficulty. Temp-probe qureshi patent and intact, draining clear yellow urine. Call light in reach, makes needs known. Will continue to monitor.
[2019-04-30 03:33] LABS: BASOPHILS ABSOLUTE AUTO 0.01 K/mm3 (0.00-0.23); BASOPHILS PERCENT AUTO 0 % (0-2); EOSINOPHILS PERCENT AUTO 0 % (0-6); Hematocrit 33.3 % (33.0-51.0); Hemoglobin 10.7 g/dL (11.5-16.0); IMMATURE GRAN ABSOLUTE AUTO 0.02 K/mm3 (0.00-0.10); IMMATURE GRAN PERCENT AUTO 0 % (0-1); LYMPHOCYTES ABSOLUTE AUTO 1.02 K/mm3 (0.84-5.20); LYMPHOCYTES PERCENT AUTO 12 % (21-46); MONOCYTES ABSOLUTE AUTO 0.18 K/mm3 (0.16-1.47); MONOCYTES PERCENT AUTO 2 % (4-13); Mean Corpuscular HGB 29.6 pg (26.0-34.0); Mean Corpuscular HGB Conc 32.1 g/dL (31.5-36.5); Mean Corpuscular Volume 92 fL (80-100); Mean Platelet Volume 11.2 fL (9.1-12.4); NEUTROPHILS ABSOLUTE AUTO 7.41 K/mm3 (1.96-9.15); NEUTROPHILS PERCENT AUTO 86 % (41-73); Platelet Count 180 K/mm3 (150-400); RDW Standard Deviation 43.1 fL (35.1-46.3); Red Blood Cell Count 3.62 M/mm3 (3.80-5.20); White Blood Cell Count 8.64 K/mm3 (4.00-11.30)
[2019-04-30 03:50] LABS: Anion Gap 10 mmol/L (6-16); Blood Urea Nitrogen 20 mg/dL (8-24); Bun/Creatinine Ratio 23.3 (12.0-20.0); CO2, Blood 20 mmol/L (21-32); Chloride, Blood 110 mmol/L (98-108); Creatinine, Blood 0.86 mg/dL (0.40-1.00); Glomerular Filtration Rate >60 (60-); Glucose, Blood 143 mg/dL (70-99); Potassium, Blood 3.8 mmol/L (3.5-5.5); Sodium, Blood 140 mmol/L (136-145)
--- NOTE | 2019-04-30 06:03 | NUR ---
Shift Summary: Patient slept well throughout shift, following x2 doses of prn Ativan. Continues to rouse to verbal stimuli when sleeping. Remains oriented and able to follow commands, mouths or writes words, makes needs known. Vent remains to AC 18/400/5/25%, tolerated vent without difficulty. VSS, O2-94-98%. Approx 0100hr, Fentanyl gtt decreased from 200mcg/hr to 100mcg/hr, and Propofol gtt decreased to 40mcg/kg/min as patient was sleeping without s/s of restlessness/agitation. Fentanyl gtt then turned off at 0600hr at patient remained calm/cooperative when awake. Appears prn ativan with Propofol gtt is effective to keep patient calm/comfortable, and fentanyl gtt is not needed. ETT cuff leak test this morning by RT Joseph, positive cuff leak noted. Slight swelling remains to lt/anterior neck but slightly decreased throughout shift, no swelling noted to tongue. Peripheral IV's remain patent and intact, infusing without difficulty. Ramesh cath remains patent and intact, draining clear, yellow urine. Calm and comfortable at this time, will monitor until report to days shift RN.
--- NOTE | 2019-04-30 11:34 | NUR ---
EXTUBATE: PT EXTUBATED AT 1110 AFTER SHE DID WELL ON A SBT. DR. SERRA AND RT AT BEDSIDE FOR EXTUBATION. PT INITIALLY WAS DROOLING RIGHT AFTER EXTUBATION SAYING SHE COULDN'T SWALLOW HER SALIVE, BUT THEN SHE DID START TO DO IT AND IS MANAGING SECRETIONS WELL. THROAT IS STILL SWOLLEN, BUT SOFT. PT SAYS IT FEELS LIKE HER TONGUE IS STILL SWOLLEN AND IT DOES APPEAR SLIGHTLY SWOLLEN, BUT PT'S STATES IT IS MUCH IMPROVED. RT PLACED COOL MIST ON PT POST EXTUBATION, BUT PT REFUSED TO KEEP IT ON. SHE STATED IT WAS TOO COLD AND WOULDN'T KEEP IT ON DESPITE WARM BLANKETS AND TURNING THE HEAT UP IN THE ROOM. PT GIVEN INSTRUCTION TO MINIMIZE TALKING AND THAT DR. SERRA ORDERED NPO FOR THE DAY. DR. SERRA ALSO ORDERED A RECEMIC EPI NEB, SEE ORDER AND TO HOLD NOON BENADRYL AND STEROIDS SHE PLANS TO DECREASE THEIR FREQUENCY.
--- NOTE | 2019-04-30 11:58 | NUR ---
REASSESSMENT: PT WAS AGITATED THIS MORNING WHEN HER SHOWED UP BUT CALMED DOWN WITH INCREASE IN PROPOFOL, ATIVAN AND FENTAYL PRN DOSES. SHE THEN WAS ABLE TO REST THROUGHOUT THE MORNING. SHE WAS EXTUBATED AT 1110 AND HAS DONE WELL SO FAR. SHE IS ALERT AND ORIENTED. SPO2 GREATER THAN 90 ON RA. LUNGS ARE CLEAR, NO STRIDOR. NECK IS STILL SWOLLEN, BUT SOFT. TONGUE IS STILL SLIGHTLY SWOLLEN. HTN IMPROVED POST EXTUBATION WITH SBP IN THE 140S NOW, DOWN FROM THE 160S. BOWEL TONES REMAIN HYPOACTIVE, ALFARO DRAINING CL YELLOW URINE. PT'S SPENT MOST OF THE MORNING AT THE BEDSIDE AND HE HAS BEEN FULLY UPDATED. ALL QUESTIONS HAVE BEEN ANSWERED.
--- NOTE | 2019-04-30 17:18 | NUR ---
SHIFT SUMMARY: PT HAS CONTINUED TO DO WELL SINCE BEING EXTUBATED THIS MORNING. SWELLING AROUND HER THROAT REMAINS SOFT. NO STRIDOR. LUNGS ARE CLEAR AND SPO2 GREATER THAN 90 ON RA. SR, SBP ELEVATED IN THE 160S AT TIMES. PT REMAINS NPO PER DR. SERRA. FOELY TO COME OUT THIS EVEING PER DR. SERRA WELL. PT'S CAME BY AND VISITED WITH PT BRIEFLY. WAS UPDATED BY NURSE AND DR. SERRA. ALL QUESTIONS HAVE BEEN ANSWERED. CONTINUING TO MONITOR.
--- NOTE | 2019-04-30 20:03 | NUR ---
[place] of Care: Care assumed at 1900hr. Patient sleeping, easily roused to verbal stimuli. Alert and oriented x4 when awake. Denies dyspnea/SOB, VSS, O2-97-98% on RA. Lt side of neck remains slightly swollen and tender to palpation, but soft. Tongue also slightly swollen, but patient denies any difficulty breathing, both appear less swollen than previous NOC shift. C/o pain to lower back (chronic), tolerable at this time, but patient requested prn fentanyl with routine scheduled HS medications. Peripheral IV's patent and intact. Ramesh catheter removed 1800hr on day shift, denies need to void at this time, will monitor. Call light in reach, makes needs known. Will continue to monitor for pain, safety, comfort.
--- NOTE | 2019-05-01 05:58 | NUR ---
Shift Summary: Patient slept on/off throughout shift. X2 prn Ativan given for c/o and anxiety and difficulty sleeping, good effect noted. Continues to deny dyspnea or SOB, O2-96-98% on RA. No change noted to tongue or neck. Tongue appears large but not swollen. Lt neck appears slightly swollen but soft to palpation. Clear speech throughout shift. C/o pain to back and generalized muscle ache throughout shift, PRN fentanyl given x3-4, patient states fentanyl helpful, but does not fully resolve pain (chronic back pain at baseline). Systolic BP 160's-180's throughout shift, received order per Dr. Ludwig for prn IV Hydralazine, x1 dose given with little effect noted. Then received order per Dr. Ludwig for PRN IV Labetalol, x1 dose given with good effect noted, systolic BP now decreased to 150's. Patient able to transfer to bedside commode this morning via x2 person stand-by, tolerated well. Call light in reach, makes needs known. Will continue to monitor until report to day shift RN.
--- NOTE | 2019-05-01 08:00 | NUR ---
PT SLEEPING RESTFULLY, AT BEDSIDE. VSS. REPORT GIVEN TO DEL LINARES FOR TRANSFER OF CARE.
--- NOTE | 2019-05-01 08:30 | NUR ---
ASSUMED CARE OF PATIENT FROM Brooks DOMINGUEZ RN. SEE ASSESSMENT CHARTING FOR DETAILS. SPOUSE REMAINS AT BEDSIDE; VERY SUPPORTIVE BUT COOPERATIVE WITH STAFF. PATIENT SLEEPING WHEN NOT DISTURBED; SBP MODERATE TOHIGH ELEVATION; MEDICATED INDICATED.
--- NOTE | 2019-05-01 10:05 | NUR ---
DR. JC HERE; DISCUSSED POC WITH PATIENT AND SPOUSE.
--- NOTE | 2019-05-01 10:10 | NUR ---
ASSISTED TO DANGLE POSITION, BY RN, THE OOB; WALKER USED TO TRANSFER TO BSC.
--- NOTE | 2019-05-01 12:00 | NUR ---
CHARGE NURSE, KENNY, SPOKE TO DR. JC; PATIENT CHANGED TO MED. FLOOR STATUS.
--- NOTE | 2019-05-01 12:42 | NUR ---
TO TRANSFER TO ROOM 337 ONCE ROOM IS CLEANED AND REPORT GIVEN.
--- NOTE | 2019-05-01 13:15 | NUR ---
DR. SERRA WANTING PATIENT TO BE EVAL. BY RN FOR SWALLOW SAFETY; IF NO ISSUES TO ORDER SOFT DIET FOR PATIENT.
--- NOTE | 2019-05-01 13:20 | NUR ---
TRIALED WATER, THEN JELLO THEN APPLESAUCE AND THEN YOGURT; NO SWALLOWING ISSUES AND PATIENT MANAGED WELL ON OWN WITHOUT S/SX OF ASPIRATION; ABLE TO FEED SELF AND TOLERATING STRAWS.
--- NOTE | 2019-05-01 13:40 | NUR ---
NORVASC 10MG PO GIVEN TO HELP WITH CHRONIC HYPERTENSIVE ISSUES.
--- NOTE | 2019-05-01 13:45 | NUR ---
REPORT GIVEN TO ANKUSH PAGE RN.
--- NOTE | 2019-05-01 14:00 | NUR ---
TRANSFERRED TO ROOM 337 VIA BED; BELONGINGS, CHART, ETC WITH PATIENT. RN TRANSPORTED PATIENT AND THEN PATIENT TRANSFERRED SELF FROM BED TO BED USING WALKER AND AMBULATING; TOLERATED WELL.
--- NOTE | 2019-05-01 14:38 | NUR ---
PATIENT TRANSFERRED TO THE FLOOR. NO ACUTE CONCERNS AT THIS TIME. SHE HAS BEEN PLEASANT SINCE TRANSFER BUT DID NOTE THAT HER PAIN WAS UP SINCE HER TRANSFER SHE HAD WALKED FROM ONE BED TO ANOTHER. PATIENT HAD FENTANYL AND PAIN WAS BROUGHT DOWN.
--- NOTE | 2019-05-01 17:55 | NUR ---
SHIFT SUMMARY PATIENT WAS AN ICU TRANSFER TODAY. NO ACUTE CONCERNS MINUS PAIN CONTROL. PATIENT HAS BEEN EXTUBATED OF YESTERDAY. SHE DENIES NAUSEA, BUT DOES NOTE THAT SHE IS NOT SWALLOWING WELL. SHE STATES THAT SHE IS STRUGGLING WITH SOME CONSISTENCIES. SHE HAD A BEDSIDE SWALLOW EVAL BY THE NURSE DOWNSTAIRS WHO STATES SHE DID WELL. ALTHOUGH JUST TAKING A SIP OF WATER SHE IS CHOKING A LOT.
--- NOTE | 2019-05-01 20:04 | NUR ---
PT C/O CHRONIC BACK PAIN, DIFFICULTY SLEEP AT NIGHT AND CONCERN FOR MISSING HOME MEDS. ALERTED TO HOME MED LIST, PAIN MEDS TAKEN AT HOME AND CURRENT ADMISSION MEDS. HE STATED HE'D ORDER HER OXYCONTIN, ZANAFLEX, BUSPAR, CELEXA, LEVOTHYROXINE AND A STOOL SOFTENER AT THIS TIME. OTHER MEDS HE DESIRES THE DAY MD'S REEVALUATE IN THE AM. PT MADE AWARE AND IS HAPPY W/THE PLAN. WILL PROVIDE NEW MEDS WHEN AVAILABLE FROM PHARMACY.
[2019-05-02 03:06] LABS: TRYPTASE 3.6 ug/L (2.2-13.2)
--- NOTE | 2019-05-02 05:34 | NUR ---
SUMMARY: A/OX4, COOPERATIVE W/CARE AND CALLS APPROPRIATELY TO SPECIFY NEEDS. PT HAS NO REMAINING S/S ANDGIOEDEMA OR RESP DISTRES. PT'S SPO2 WNL ON RA W/RESPS E/U AND LS CLEAR T/O. PT WAS EXTUBATED ON 04/30/19 PER REPORT. UPON ARRIVAL TO FLOOR MANY HOME MEDS WERE MISSING AND PT HAS HX CHRONIC BACK PAIN, DEPRESSION/ANXIETY SO REQ'D MEDS FOR PAIN, SLEEP AND CONSTIPATION. NEW ORDERS OBTAINED AND MEDS RECIEVED PER EMAR. PROVIDED FURTHER INSTRUCTION TO HAVE DAY STAFF RECONCILE HOME MED LIST SO THEY CAN BE RESUMED TODAY. PT MEDICATED W/ATIVAN PRN, OXYCONTIN AND ZANAFLEX AT HS FOR TOLERABLE PAIN/ANXIETY RELIEF WHICH PROMOTED SLEEP/REST. SHE'S DENIED COMPLAINTS SINCE AND HAS BEEN UP TO [facility] [place] W/SBA FOR VOIDS. NO ACUTE CHANGES, VSS/AFEBRILE. PT TOLERATED PO INTAKE PENDING ST EVAL THIS AM. WCTM AND REPORT TO DAY RN.
[2019-05-02 05:35] LABS: BASOPHILS ABSOLUTE AUTO 0.01 K/mm3 (0.00-0.23); BASOPHILS PERCENT AUTO 0 % (0-2); EOSINOPHILS ABSOLUTE AUTO 0.03 K/mm3 (0.00-0.68); EOSINOPHILS PERCENT AUTO 0 % (0-6); Hematocrit 35.6 % (33.0-51.0); Hemoglobin 11.3 g/dL (11.5-16.0); IMMATURE GRAN ABSOLUTE AUTO 0.02 K/mm3 (0.00-0.10); IMMATURE GRAN PERCENT AUTO 0 % (0-1); LYMPHOCYTES ABSOLUTE AUTO 2.49 K/mm3 (0.84-5.20); LYMPHOCYTES PERCENT AUTO 35 % (21-46); MONOCYTES PERCENT AUTO 7 % (4-13); Mean Corpuscular HGB Conc 31.7 g/dL (31.5-36.5); Mean Corpuscular Volume 91 fL (80-100); Mean Platelet Volume 11.1 fL (9.1-12.4); NEUTROPHILS PERCENT AUTO 57 % (41-73); Platelet Count 191 K/mm3 (150-400); RDW Coefficient Variation 13.2 % (11.7-14.2); RDW Standard Deviation 43.6 fL (35.1-46.3); White Blood Cell Count 7.05 K/mm3 (4.00-11.30)
[2019-05-02 05:56] LABS: Alanine Aminotransfer (ALT/SGP 13 U/L (12-78); Albumin, Blood 3.1 g/dL (3.4-5.0); Albumin/Globulin Ratio 0.9 (0.8-1.8); Alk Phos 67 U/L (50-136); Anion Gap 6 mmol/L (6-16); Aspartate Aminotrans (AST/SGOT 14 U/L (12-37); Bilirubin, Total 0.3 mg/dL (0.1-1.0); Blood Urea Nitrogen 16 mg/dL (8-24); Bun/Creatinine Ratio 24.8 (12.0-20.0); CO2, Blood 27 mmol/L (21-32); Calcium, Blood 8.9 mg/dL (8.5-10.1); Chloride, Blood 107 mmol/L (98-108); Creatinine, Blood 0.65 mg/dL (0.40-1.00); Globulin, Blood 3.3 g/dL (2.2-4.0); Glomerular Filtration Rate >60 (60-); Glucose, Blood 93 mg/dL (70-99); Potassium, Blood 3.6 mmol/L (3.5-5.5); Sodium, Blood 140 mmol/L (136-145); Total Protein, Blood 6.4 g/dL (6.4-8.2)
[2019-05-02] MEDS ORDERED: Bisoprolol Fumar5 MG PO (13:16)
--- NOTE | 2019-05-02 18:24 | NUR ---
PATIENT IS ALERT AND ORIENTED AND COOPERATIVE WITH CARE. SHE CALLS APPROPRIATELY. HAS BEEN AT THE BEDSIDE MOST OF THE DAY. THE PATIENT'S BLOOD PRESSURE HAS BEEN INCREASED. TREATED PER EMAR. THIS EVENING THE PATIENT'S BP IS 190/119. A HEART MONITOR HAS BEEN ORDERED AND PLACED ON THE PATIENTS. METOPROLOL IV HAS BEEN ORDERED. WILL CONTINUE TO MONITOR
--- NOTE | 2019-05-03 00:18 | NUR ---
05/03/19 0015 PT C/O SEVERE HEADACHE WHEN RE-CHECKING HER VITALS EARLIER. ALSO STATES SHE HAS NOT BEEN ABLE TO SLEEP AND IS "JUST NEED TO SLEEP!" RN PAGED ON-CALL MD ABOUT HER CONCERNS. SEE MAR FOR MEDS GIVEN.
--- NOTE | 2019-05-03 03:08 | NUR ---
05/03/19 0300 PT AWAKENED BY HAT BODY SORTER TO CHECK HEART MONITOR LEADS LOOSE. PT WAS SLAAPING AND DENIED ANY S/S. MONITOR PAD RE-APPLIED. DECLINED VITALS SIGNS FOR NOW.
--- NOTE | 2019-05-03 03:35 | NUR ---
05/03/19 0335 PT CALLED GREASE REFINER OPERATOR TO STRAIGHTEN BED LINENS. VITALS TAKE NOW AND EVEN BETTER BP THAN BEFORE. C/O HEADACHE BUT INFORMED NO FURTHER MEDS AVAILABLE FOR NOW. PT NPO FOR PROCEDURE THIS AM.
--- NOTE | 2019-05-03 10:07 | NUR ---
PATIENT REMOVED TELE FROM SELF. I ASKED HER TO PLEASE WEAR IT, SHE REFUSED. RETURNED BOX TO TELE DEPT IN PCU.
[2019-05-03] MEDS ORDERED: METO25ER PO (11:23)
[2019-05-03] MEDS ORDERED: AMLO10 PO (11:32)
[2019-05-03] MEDS ORDERED: PRED20 PO (11:32)
--- NOTE | 2019-05-03 11:53 | NUR ---
patient discharge instructions given verbally and a printed copy. educational material provided. all questions answered. iv removed. patient removed tele earlier this AM. patient was just discharged from building by wheel chair at 1154.
== END 2019-05-03 11:55 | disposition home or self-care (01) | DRG 915 ==
LOC: ER 06:22 → ICUW 07:47 → MEDS 05-01 14:12
PROVIDERS: Emergency Medicine; Internal Medicine Pulmonary Disease; ADMIT Internal Medicine
PROC: 0BH17EZ Insertion of Endotracheal Airway into Trachea, Via Natural or Artificial Opening (ICD-10-PCS; principal; 2019-04-29)
PROC: 5A1945Z Respiratory Ventilation, 24-96 Consecutive Hours (ICD-10-PCS; 2019-04-29)
DX: T78.3XXA Angioneurotic edema, initial encounter (principal); J96.00 Acute respiratory failure, unspecified whether with hypoxia or hypercapnia; I10 Essential (primary) hypertension; J44.9 Chronic obstructive pulmonary disease, unspecified; G89.4 Chronic pain syndrome; M10.9 Gout, unspecified; E78.5 Hyperlipidemia, unspecified; F41.8 Other specified anxiety disorders; R63.0 Anorexia
CPT/HCPCS: 31500; 31720; 36415; 51702; 71045; 80048; 80053; 82803; 82947; 83520; 85025; 86160; 92610; 93005; 93010; 93975; 94002; 94003; 94640; 96361-59; 96372-59; 96374-59; 96375-59; 99291-25; A9270; J0171; J0330; J0360; J1100; J1200; J1650; J2001; J2060; J2250; J2270; J2405; J2704; J2765; J2920; J3010; J7030; J7050; J7512

== ENCOUNTER → 2020-11-25 | Outpatient (CLI) | payer BC, OTHER ==
[~2020-11-25] MED LIST changes: +ACYC800; +ALBU90OI INH; +AMLO10 PO; +ASPI325EC PO; +Adipex-P37.5 MG PO; +BENADRYL25 MG PO; +CALCIUM 600-VI1 EAC2 PO; +DECADRON6 M1 PO; +MAGNESIUM OXID500 MG PO; +METO25ER PO; +NORTHERA300 MG PO; +OMEPRAZOLE20 MG PO; +PRED20 PO; +TIZA4 PO; +VITAMIN D32000 UNI1 PO
[2020-11-27 19:16] LABS: CORONAVIRUS (COVID19) CSH-NRL Positive (Negative)
== END ==
LOC: LAB SHORT 13:15 → LAB 13:15 → LAB EV 13:15
PROVIDERS: Physician Assistant Medical
DX: U07.1 COVID-19 (principal); Z88.0 Allergy status to penicillin; Z88.2 Allergy status to sulfonamides; Z88.8 Allergy status to other drugs, medicaments and biological substances; Z88.6 Allergy status to analgesic agent
CPT/HCPCS: U0003

== ENCOUNTER 2021-02-22 06:50 | Day surgery (SDC) | payer BC, OTHER ==
[~2021-02-22] VITALS: Ht 167.6 cm; Wt 96.6 kg
--- NOTE | 2021-02-22 10:14 | NUR ---
02/22/21 1014 Yaa Tomlin S 0931 PT. DENIES PAIN EXCEPT PT. C/O LEFT EYE HURTING. PT. STATES "FEELS LIKE SOMETHING IS IN MY EYE. PT. LEFT EYE WATERING & REDDENED. DR. BAILEY AWARE & TALKING WITH PT. ABOUT HER LEFT EYE. PT. INSTRUCTED BY DR. BAILEY TO GO TO URGENT CARE IF SHE WAS CONCERNED. DID MENTIONED THAT IT MIGHT HAD GOTTEN RUBBED ON HER PILLOW. DR. BAILEY ALSO NOTIFIED THAT HER BP WAS HIGHER THAT WHEN SHE CAME IN. NO ORDERS GIVEN.
== END 2021-02-22 10:00 | disposition home or self-care (01) ==
LOC: ORSCSDS 06:50
DX: R13.10 Dysphagia, unspecified (principal); K29.70 Gastritis, unspecified, without bleeding; R10.30 Lower abdominal pain, unspecified; Z86.010 Personal history of colon polyps; Z87.19 Personal history of other diseases of the digestive system; D12.3 Benign neoplasm of transverse colon; D12.2 Benign neoplasm of ascending colon; K57.30 Diverticulosis of large intestine without perforation or abscess without bleeding; K64.8 Other hemorrhoids; I10 Essential (primary) hypertension; E78.5 Hyperlipidemia, unspecified; Z79.899 Other long term (current) drug therapy
CPT/HCPCS: 88305; 88342; J2250; J2704; J7120

== ENCOUNTER → 2021-04-19 | Outpatient (CLI) | payer BC, OTHER | END | disposition home or self-care (01) | LOC: LAB SHORT 11:34 | DX: N18.30 Chronic kidney disease, stage 3 unspecified (principal); N39.0 Urinary tract infection, site not specified | CPT/HCPCS: 87086 ==

== ENCOUNTER → 2021-10-15 | Outpatient (CLI) | payer BC, OTHER ==
[2021-10-15 17:04] LABS: Source, Urine Clean Catch
[2021-10-15 19:19] LABS: Appearance, Urine Clear (Clear); Bilirubin, Urine Neg (Neg); Blood, Urine Neg (Neg); Color, Urine Yellow (P-Yellow); Glucose Qualitative, Urine Neg (Neg); Ketones, Urine Neg (Neg); Leukocyte Esterase, Urine Neg (Neg); Nitrite, Urine Neg (Neg); Protein, Urine 2+ (Neg); Urobilinogen, Urine NORM (Normal)
[2021-10-15 19:49] LABS: Bacteria Mod /hpf; Red Blood Cells, Urine 0-2 /hpf (0-2); Squamous Epithelial Cells Few /hpf (Few); White Blood Cells, Urine 0-2 /hpf (0-5)
== END | disposition home or self-care (01) ==
LOC: LAB 16:56 → LAB SHORT 16:56
PROVIDERS: Obstetrics & Gynecology
DX: N39.46 Mixed incontinence (principal)
CPT/HCPCS: 81001; 87086

== ENCOUNTER 2022-02-08 15:35 | Emergency (ER) | payer BC, OTHER ==
[~2022-02-08] VITALS: Ht 172.7 cm; Wt 142.9 kg
[~2022-02-08 15:35] MED LIST changes: +DILTIAZEM 24HR120 M2 PO; +[UNRECOGNIZED DRUG - REMARK] PO
[2022-02-08 16:13] LABS: BASOPHILS ABSOLUTE AUTO 0.03 K/mm3 (0.00-0.23); BASOPHILS PERCENT AUTO 0 % (0-2); EOSINOPHILS ABSOLUTE AUTO 0.27 K/mm3 (0.00-0.68); EOSINOPHILS PERCENT AUTO 3 % (0-6); Hematocrit 32.9 % (33.0-51.0); Hemoglobin 10.7 g/dL (11.5-16.0); IMMATURE GRAN ABSOLUTE AUTO 0.03 K/mm3 (0.00-0.10); IMMATURE GRAN PERCENT AUTO 0 % (0-1); LYMPHOCYTES ABSOLUTE AUTO 1.91 K/mm3 (0.84-5.20); LYMPHOCYTES PERCENT AUTO 22 % (21-46); MONOCYTES ABSOLUTE AUTO 0.59 K/mm3 (0.16-1.47); MONOCYTES PERCENT AUTO 7 % (4-13); Mean Corpuscular HGB 29.2 pg (26.0-34.0); Mean Corpuscular HGB Conc 32.5 g/dL (31.5-36.5); Mean Corpuscular Volume 90 fL (80-100); Mean Platelet Volume 11.1 fL (9.1-12.4); NEUTROPHILS ABSOLUTE AUTO 5.74 K/mm3 (1.96-9.15); NEUTROPHILS PERCENT AUTO 67 % (41-73); Platelet Count 240 K/mm3 (150-400); RDW Coefficient Variation 14.1 % (11.7-14.2); RDW Standard Deviation 46.4 fL (35.1-46.3); Red Blood Cell Count 3.66 M/mm3 (3.80-5.20); White Blood Cell Count 8.57 K/mm3 (4.00-11.30)
[2022-02-08 16:33] LABS: Albumin, Blood 3.1 g/dL (3.4-5.0); Albumin/Globulin Ratio 0.8 (0.8-1.8); Bilirubin, Total 0.1 mg/dL (0.1-1.0); Bun/Creatinine Ratio 30.8 (12.0-20.0); Calcium, Blood 8.5 mg/dL (8.5-10.1); Creatinine, Blood 0.78 mg/dL (0.40-1.00); Globulin, Blood 3.8 g/dL (2.2-4.0); Potassium, Blood 3.3 mmol/L (3.5-5.5); Total Protein, Blood 6.9 g/dL (6.4-8.2)
[2022-02-08] MEDS ORDERED: PRED20 PO (20:34)
[2022-02-08] MEDS ORDERED: BENMENLOZ MM (20:34)
== END 2022-02-08 21:13 | disposition home or self-care (01) ==
LOC: ER 15:35
PROVIDERS: Physician Assistant
DX: R58 Hemorrhage, not elsewhere classified (principal); R13.10 Dysphagia, unspecified; K14.6 Glossodynia; J44.9 Chronic obstructive pulmonary disease, unspecified; I12.9 Hypertensive chronic kidney disease with stage 1 through stage 4 chronic kidney disease, or unspecified chronic kidney disease; N18.9 Chronic kidney disease, unspecified; Z88.8 Allergy status to other drugs, medicaments and biological substances; Z88.0 Allergy status to penicillin; Z88.2 Allergy status to sulfonamides; Z79.82 Long term (current) use of aspirin; Z79.890 Hormone replacement therapy
CPT/HCPCS: 36415; 80053; 85025; A9270; J1200; J2930

== ENCOUNTER 2022-04-08 06:45 | Day surgery (SDC) | payer BC, OTHER ==
[~2022-04-08] VITALS: Ht 165.1 cm; Wt 101.4 kg
[~2022-04-08 06:45] MED LIST changes: +BENMENLOZ MM
== END 2022-04-08 08:44 | disposition home or self-care (01) ==
LOC: ORSCSDS 06:45
PROVIDERS: Ophthalmology
PROC: 08DK3ZZ Extraction of Left Lens, Percutaneous Approach (ICD-10-PCS; principal; 2022-04-08 08:00)
DX: H25.12 Age-related nuclear cataract, left eye (principal); I10 Essential (primary) hypertension; I12.9 Hypertensive chronic kidney disease with stage 1 through stage 4 chronic kidney disease, or unspecified chronic kidney disease; N18.9 Chronic kidney disease, unspecified; J45.909 Unspecified asthma, uncomplicated; M32.9 Systemic lupus erythematosus, unspecified; J44.9 Chronic obstructive pulmonary disease, unspecified; Z79.899 Other long term (current) drug therapy
CPT/HCPCS: J2001; J2250; J3010; J7040; V2632

== ENCOUNTER 2022-08-01 14:29 | Emergency (ER) | payer OTHER ==
[~2022-08-01] VITALS: Ht 167.6 cm; Wt 72.6 kg
[2022-08-01 15:43] LABS: BASOPHILS ABSOLUTE AUTO 0.02 K/mm3 (0.00-0.23); BASOPHILS PERCENT AUTO 0 % (0-2); EOSINOPHILS ABSOLUTE AUTO 0.16 K/mm3 (0.00-0.68); EOSINOPHILS PERCENT AUTO 2 % (0-6); Hematocrit 33.9 % (33.0-51.0); Hemoglobin 11.4 g/dL (11.5-16.0); IMMATURE GRAN ABSOLUTE AUTO 0.01 K/mm3 (0.00-0.10); IMMATURE GRAN PERCENT AUTO 0 % (0-1); LYMPHOCYTES PERCENT AUTO 30 % (21-46); MONOCYTES ABSOLUTE AUTO 0.46 K/mm3 (0.16-1.47); MONOCYTES PERCENT AUTO 7 % (4-13); Mean Corpuscular HGB 28.6 pg (26.0-34.0); Mean Corpuscular HGB Conc 33.6 g/dL (31.5-36.5); Mean Corpuscular Volume 85 fL (80-100); Mean Platelet Volume 11.2 fL (9.1-12.4); NEUTROPHILS ABSOLUTE AUTO 3.93 K/mm3 (1.96-9.15); NEUTROPHILS PERCENT AUTO 60 % (41-73); Platelet Count 211 K/mm3 (150-400); RDW Coefficient Variation 13.5 % (11.7-14.2); RDW Standard Deviation 41.8 fL (35.1-46.3); Red Blood Cell Count 3.99 M/mm3 (3.80-5.20); White Blood Cell Count 6.58 K/mm3 (4.00-11.30)
[2022-08-01 16:04] LABS: Albumin, Blood 3.6 g/dL (3.4-5.0); Albumin/Globulin Ratio 0.9 (0.8-1.8); Bilirubin, Total 0.4 mg/dL (0.1-1.0); Bun/Creatinine Ratio 21.6 (12.0-20.0); Calcium, Blood 9.8 mg/dL (8.5-10.1); Creatinine, Blood 1.16 mg/dL (0.40-1.00); Globulin, Blood 3.9 g/dL (2.2-4.0); Potassium, Blood 2.8 mmol/L (3.5-5.5); Total Protein, Blood 7.5 g/dL (6.4-8.2)
[2022-08-01 18:56] LABS: Source, Urine Clean Catch
[2022-08-01 19:04] LABS: Appearance, Urine Clear (Clear); Bilirubin, Urine Neg (Neg); Blood, Urine Neg (Neg); Color, Urine Yellow (P-Yellow); Glucose Qualitative, Urine Neg (Neg); Ketones, Urine Neg (Neg); Leukocyte Esterase, Urine Neg (Neg); Nitrite, Urine Neg (Neg); Protein, Urine Neg (Neg); Urobilinogen, Urine NORM (Normal)
[2022-08-01 21:14] VITALS: BP 107/96
== END 2022-08-01 21:15 | disposition home or self-care (01) ==
LOC: ER 14:29
PROVIDERS: Physician Assistant
DX: E87.6 Hypokalemia (principal); E87.1 Hypo-osmolality and hyponatremia; E86.0 Dehydration; F11.121 Opioid abuse with intoxication delirium; I12.9 Hypertensive chronic kidney disease with stage 1 through stage 4 chronic kidney disease, or unspecified chronic kidney disease; N18.9 Chronic kidney disease, unspecified; J44.9 Chronic obstructive pulmonary disease, unspecified; M10.9 Gout, unspecified; E78.5 Hyperlipidemia, unspecified; Z88.8 Allergy status to other drugs, medicaments and biological substances; Z88.1 Allergy status to other antibiotic agents; Z88.0 Allergy status to penicillin; Z88.2 Allergy status to sulfonamides; Z79.899 Other long term (current) drug therapy; Z79.82 Long term (current) use of aspirin
CPT/HCPCS: 36415; 71046; 80053; 81003; 84484; 85025; 93005; 93010; 99284-25; A9270; J7030

== ENCOUNTER 2022-10-18 20:30 | Inpatient (IN) | payer OTHER ==
[~2022-10-18] VITALS: Ht 165.1 cm; Wt 92.6 kg
[~2022-10-18 20:30] MED LIST changes: +OMEP20ER PO; -Prilosec Otc20 MG PO
[2022-10-18 21:19] LABS: BASOPHILS ABSOLUTE AUTO 0.03 K/mm3 (0.00-0.23); BASOPHILS PERCENT AUTO 0 % (0-2); EOSINOPHILS ABSOLUTE AUTO 0.14 K/mm3 (0.00-0.68); EOSINOPHILS PERCENT AUTO 2 % (0-6); Hematocrit 41.1 % (33.0-51.0); Hemoglobin 13.7 g/dL (11.5-16.0); IMMATURE GRAN ABSOLUTE AUTO 0.03 K/mm3 (0.00-0.10); IMMATURE GRAN PERCENT AUTO 0 % (0-1); LYMPHOCYTES ABSOLUTE AUTO 2.31 K/mm3 (0.84-5.20); LYMPHOCYTES PERCENT AUTO 27 % (21-46); MONOCYTES ABSOLUTE AUTO 0.53 K/mm3 (0.16-1.47); MONOCYTES PERCENT AUTO 6 % (4-13); Mean Corpuscular HGB 29.2 pg (26.0-34.0); Mean Corpuscular HGB Conc 33.3 g/dL (31.5-36.5); Mean Corpuscular Volume 88 fL (80-100); Mean Platelet Volume 11.3 fL (9.1-12.4); NEUTROPHILS ABSOLUTE AUTO 5.44 K/mm3 (1.96-9.15); NEUTROPHILS PERCENT AUTO 64 % (41-73); Platelet Count 229 K/mm3 (150-400); RDW Coefficient Variation 13.7 % (11.7-14.2); RDW Standard Deviation 43.9 fL (35.1-46.3); Red Blood Cell Count 4.69 M/mm3 (3.80-5.20); White Blood Cell Count 8.48 K/mm3 (4.00-11.30)
[2022-10-18 21:37] LABS: Ethanol (Alcohol), Blood, Med <3 mg/dL; Magnesium, Blood 1.6 mg/dL (1.6-2.4); Salicylate 1.8 mg/dL (2.8-20.0)
[2022-10-18 21:40] LABS: Alanine Aminotransfer (ALT/SGP 37 U/L (12-78); Albumin, Blood 4.1 g/dL (3.4-5.0); Albumin/Globulin Ratio 1.1 (0.8-1.8); Alk Phos 234 U/L (50-136); Anion Gap 9 mmol/L (6-16); Aspartate Aminotrans (AST/SGOT 33 U/L (12-37); Bilirubin, Total 0.2 mg/dL (0.1-1.0); Blood Urea Nitrogen 22 mg/dL (8-24); Bun/Creatinine Ratio 21.8 (12.0-20.0); CO2, Blood 26 mmol/L (21-32); Calcium, Blood 9.4 mg/dL (8.5-10.1); Chloride, Blood 106 mmol/L (98-108); Creatinine, Blood 1.01 mg/dL (0.40-1.00); Globulin, Blood 3.9 g/dL (2.2-4.0); Glomerular Filtration Rate 64 (60-); Glucose, Blood 169 mg/dL (70-99); Phosphorus, Blood 1.3 mg/dL (2.5-4.9); Sodium, Blood 141 mmol/L (136-145)
[2022-10-18 21:41] LABS: Base Excess Venous 3.4 mmol/L; Bicarbonate Venous 26.4 mmol/L (24.0-30.0); PCO2 Venous 48.5 mmHg (38-42); pH Blood Venous 7.38 (7.34-7.37)
[2022-10-18 21:49] LABS: Acetaminophen, Random <2.0 ug/mL (10.0-30.0)
[2022-10-18 22:03] LABS: Source, Urine Straight Cath
[2022-10-18 22:08] LABS: Bilirubin, Urine Neg (Neg); Blood, Urine Neg (Neg); Glucose Qualitative, Urine 1+ (Neg); Ketones, Urine Neg (Neg); Leukocyte Esterase, Urine Neg (Neg); Nitrite, Urine Neg (Neg); Protein, Urine 3+ (Neg); Urobilinogen, Urine NORM (Normal)
[2022-10-18 22:29] LABS: U Amphetamine Screen Not Detected; U Barbituate Screen Not Detected; U Benzodiazapine Screen Not Detected; U Buprenorphine Screen Not Detected; U Cannabinoids Screen DETECTED; U Cocaine Screen Not Detected; U Methadone Screen Not Detected; U Methamphetamine Screen Not Detected; U Opiates Screen Not Detected; U Oxycodone Screen DETECTED; U Phencyclidine Screen Not Detected; U Propoxyphene Screen Not Detected
[2022-10-18 22:31] LABS: Appearance, Urine Clear (Clear); Bacteria Few /hpf; Color, Urine Yellow (P-Yellow); Red Blood Cells, Urine Not Seen /hpf (0-2); Squamous Epithelial Cells Few /hpf (Few); White Blood Cells, Urine Not Seen /hpf (0-5)
[2022-10-19] VITALS (53 sets, daily range): BP systolic 86–205; BP diastolic 70–129
[2022-10-19 03:51] LABS: BASOPHILS ABSOLUTE AUTO 0.03 K/mm3 (0.00-0.23); BASOPHILS PERCENT AUTO 0 % (0-2); EOSINOPHILS ABSOLUTE AUTO 0.06 K/mm3 (0.00-0.68); EOSINOPHILS PERCENT AUTO 1 % (0-6); Hematocrit 35.7 % (33.0-51.0); Hemoglobin 11.6 g/dL (11.5-16.0); IMMATURE GRAN ABSOLUTE AUTO 0.02 K/mm3 (0.00-0.10); IMMATURE GRAN PERCENT AUTO 0 % (0-1); LYMPHOCYTES ABSOLUTE AUTO 2.02 K/mm3 (0.84-5.20); LYMPHOCYTES PERCENT AUTO 29 % (21-46); MONOCYTES ABSOLUTE AUTO 0.55 K/mm3 (0.16-1.47); MONOCYTES PERCENT AUTO 8 % (4-13); Mean Corpuscular HGB 28.7 pg (26.0-34.0); Mean Corpuscular HGB Conc 32.5 g/dL (31.5-36.5); Mean Corpuscular Volume 88 fL (80-100); Mean Platelet Volume 11.1 fL (9.1-12.4); NEUTROPHILS ABSOLUTE AUTO 4.34 K/mm3 (1.96-9.15); NEUTROPHILS PERCENT AUTO 62 % (41-73); Platelet Count 216 K/mm3 (150-400); RDW Coefficient Variation 13.5 % (11.7-14.2); RDW Standard Deviation 44.3 fL (35.1-46.3); Red Blood Cell Count 4.04 M/mm3 (3.80-5.20); White Blood Cell Count 7.02 K/mm3 (4.00-11.30)
[2022-10-19 04:08] LABS: Albumin, Blood 3.4 g/dL (3.4-5.0); Bilirubin, Total 0.2 mg/dL (0.1-1.0); Bun/Creatinine Ratio 20.7 (12.0-20.0); Calcium, Blood 8.9 mg/dL (8.5-10.1); Creatinine, Blood 0.87 mg/dL (0.40-1.00); Globulin, Blood 3.4 g/dL (2.2-4.0); Potassium, Blood 3.2 mmol/L (3.5-5.5); Total Protein, Blood 6.8 g/dL (6.4-8.2)
--- NOTE | 2022-10-19 06:25 | NUR ---
PATIENT ARRIVED FROM ED AT 0230 PATIENT WAS ALERT AND ORIENTED X3. DID NOT KNOW THE SITUATION THAT BROUGHT HER TO THE HOSPITAL. PATIENT IS A POOR HISTORIAN UNABLE TO PROVIDE MEDICATION HISTORY/CURRENT USE. PATIENT HYPERTENSIVE TREATING PER JUN. VS OTHERWISE STABLE. MOVES ALL EXTREMETIES. COMPLAINTS OF PAIN TO TAILBONE FROM FROM.
--- NOTE | 2022-10-19 08:00 | NUR ---
PT ANSWERS TO VOICE, SHE THINKS IT IS THURSDAY. SHE IS COMPLAINING OF COCCYX PAIN, REPOSITIONED WITH HER ASSISTANCE. SAYS SHE HASN'T SLEPT IN DAYS. BP IS STABLE, ALL IVS ON SB. C/O LEG PAIN, RIGHT KNEE. C/O THAT SHE IS "OVERMEDICATED" AND THAT IS WHY SHE IS FALLING IN THE MORNINGS. STATES THAT ER SAID THAT SHE NEEDS HER MEDICATION ADJUSTED.
[2022-10-19 10:21] LABS: PCO2 Arterial 45.5 mmHg (35-45); PO2 Arterial 113 mmHg (80-100); pH Blood Arterial 7.41 (7.35-7.45)
[2022-10-19 10:27] LABS: BASOPHILS ABSOLUTE AUTO 0.04 K/mm3 (0.00-0.23); BASOPHILS PERCENT AUTO 1 % (0-2); EOSINOPHILS ABSOLUTE AUTO 0.09 K/mm3 (0.00-0.68); EOSINOPHILS PERCENT AUTO 1 % (0-6); Hematocrit 42.4 % (33.0-51.0); Hemoglobin 14.3 g/dL (11.5-16.0); IMMATURE GRAN ABSOLUTE AUTO 0.02 K/mm3 (0.00-0.10); IMMATURE GRAN PERCENT AUTO 0 % (0-1); LYMPHOCYTES ABSOLUTE AUTO 2.24 K/mm3 (0.84-5.20); LYMPHOCYTES PERCENT AUTO 31 % (21-46); MONOCYTES ABSOLUTE AUTO 0.36 K/mm3 (0.16-1.47); MONOCYTES PERCENT AUTO 5 % (4-13); Mean Corpuscular HGB 29.2 pg (26.0-34.0); Mean Corpuscular HGB Conc 33.7 g/dL (31.5-36.5); Mean Corpuscular Volume 87 fL (80-100); Mean Platelet Volume 10.7 fL (9.1-12.4); NEUTROPHILS ABSOLUTE AUTO 4.56 K/mm3 (1.96-9.15); NEUTROPHILS PERCENT AUTO 63 % (41-73); Platelet Count 249 K/mm3 (150-400); RDW Coefficient Variation 13.4 % (11.7-14.2); RDW Standard Deviation 42.2 fL (35.1-46.3); White Blood Cell Count 7.31 K/mm3 (4.00-11.30)
[2022-10-19 10:56] LABS: Albumin, Blood 4.2 g/dL (3.4-5.0); Bilirubin, Total 0.3 mg/dL (0.1-1.0); Calcium, Blood 9.6 mg/dL (8.5-10.1); Creatinine, Blood 0.74 mg/dL (0.40-1.00); Globulin, Blood 4.2 g/dL (2.2-4.0); Magnesium, Blood 1.2 mg/dL (1.6-2.4); Potassium, Blood 2.9 mmol/L (3.5-5.5); Total Protein, Blood 8.4 g/dL (6.4-8.2)
[2022-10-19 11:05] LABS: Source, Urine Foley catheter
[2022-10-19 11:11] LABS: Appearance, Urine Clear (Clear); Bilirubin, Urine Neg (Neg); Blood, Urine 3+ (Neg); Color, Urine Yellow (P-Yellow); Glucose Qualitative, Urine 1+ (Neg); Ketones, Urine Neg (Neg); Leukocyte Esterase, Urine Neg (Neg); Nitrite, Urine Neg (Neg); Protein, Urine 3+ (Neg); Urobilinogen, Urine NORM (Normal)
[2022-10-19 11:18] LABS: Bacteria Rare /hpf; Mucus Light (0-Heavy); Renal Epithelial Rare /hpf (0-Rare); Squamous Epithelial Cells Mod /hpf (Few); Transitional Epithelial Cells Few /hpf (0-Rare); White Blood Cells, Urine 0-2 /hpf (0-5)
--- NOTE | 2022-10-19 11:56 | NUR ---
SUMMARY OF EVENTS: AROUND 929 PT BEGAN WRETCHING, WAS AT BEDSIDE. RN WENT IN AND IT WAS NOTED THAT SHE WAS HAVING SOME RUNS OF WIDE COMPLEX TACHYCARDIA FROM 937 - 942, SHE REMAINED WITH A PULSE THEN WENT IN TO RAPID NARROW COMPLEX TACHY. A CODE BLUE WAS CALLED AND PT WAS GIVEN A SYNCHRONIZED SHOCK (@ 0945) ORDERED BY THE ED DR. STONER. PT WAS CONTINUING IN THE WIDE COMPLEX TACH AND CHOSE TO INTUBATE PATIENT. (949) ETT 7.5, 23CM AT THE TEETH. 0955 OGT PLACED. 1000 PT GIVEN AMIODARONE 150MG BOLUS. PT WAS STARTED ON PROPOFOL GTT, MG+ IVPB STARTED AND AMIO GTT STARTED. PT STARTED WAKING UP AND WAS VERY DIFFICULT TO GET PATIENT TO RELAX. AND SAW THE PATIENT AND AGREED THAT PT WAS OK TO EXTUBATE. PT EXTUBATED AT 1125. SHE HAD AN ECHO DONE AND DR. RADHA MCCORMICK IS HERE TO SEE THE PATIENT. SHE IS LYING LEFT SIDE DOWN AND FEELING MUCH BETTER.
--- NOTE | 2022-10-19 13:26 | NUR ---
PROVIDER PHONE CALL: Pt complaining of nausea. See new orders.
--- NOTE | 2022-10-19 15:04 | NUR ---
PT WAS DRY HEAVING AGAIN. SHE WAS CONCERNED THAT IS WHAT PRECIPITATED HER EARLIER EVENT. SHE DID NOT HAVE ANY ECTOPY AND IT SELF RESOLVED. SHE IS HAVING A PROLONGED QT INTERVAL >500 SINCE STARTING THE AMIODARONE. HER TROPONIN CAME BACK ELEVATED EXPECTED POST SHOCK, A CALL WAS MADE TO BUT HIS PHONE IS NOT ANSWERING AT THIS TIME. DISCUSSED WITH FOOD BAGGING MACHINE OPERATOR.
--- NOTE | 2022-10-19 16:22 | NUR ---
PHONE CALL TO RE: PT'S NAUSEA. DISCUSSED PROLONGED QT, PHENERGAN ORDER RECEIVED. THEN ABLE TO REACH , HE SAID IT IS OK TO USE THE ONDANSETRON FOR HER NAUSEA, ALSO SAID TO CONTINUE THE PROTOCOL FOR THE AMIO, TURN DOWN TO 0.5 @ 6 HOURS FOR 18 HOURS.
--- NOTE | 2022-10-19 17:35 | NUR ---
RICHARD IS DOING SO MUCH BETTER. THE AMIODARONE @ 0.5MG/HR. HR IS 110'S, SBP 150'S. ROOM AIR 99%. SHE IS ABLE TO COMMUNICATE HER NEEDS. SHE HAD VISITS FROM HER FAMILY TODAY AND THAT SHE SAID HELPED HER "SO MUCH". HER "HEART HURT" WHILE LYING ON HER LEFT SIDE, SHE IS REPOSITIONED TO HER RIGHT SIDE AND SHE IS ABLE TO MOVE HER HEAD AND NECK AND HELP REPOSITION HER LEGS. SHE IS MORE ENGAGING AND IS ABLE TO TAKE IN WATER ON HER OWN. HER HOT AND COLD FLASHES HAVE DECREASED IN FREQUENCY WELL. SHE HAS HAD MINIMAL ECTOPY THIS AFTERNOON. CONT CURRENT PLAN OF CARE.
[2022-10-19 20:03] LABS: Bun/Creatinine Ratio 19.9 (12.0-20.0); Calcium, Blood 9.3 mg/dL (8.5-10.1); Creatinine, Blood 0.75 mg/dL (0.40-1.00); Magnesium, Blood 1.7 mg/dL (1.6-2.4); Potassium, Blood 4.1 mmol/L (3.5-5.5)
--- NOTE | 2022-10-19 20:50 | NUR ---
ASSUMED CARE ASSUMED CARE AT 1899. PT A/O X 4. PLEASANT AND COOPERATIVE WITH CARE. ANXIOUS REGARDING EARLIER EPISODE. EDUCATED PT ON PRIOR EVENTS AND CURRENT POC. INITIALLY PT DENIED NAUSEA, BUT APPROX 2039, PT C/O OF NAUSEA. MEDICATED PER EMAR. ST W/ OCCASIONAL PVC'S. RATE 110'S. CHASE QTC 0.58S. HTN NOTED. OTHER VSS. PT DENIES CHEST/ABD PAIN. ALFARO PATENT AND DRAINING TO GRAVITY. MINIMAL OUTPUT, PT STATES THIS IS NORMAL FOR HER AND SHE SEE'S DR RODGERS OUTPATIENT.
--- NOTE | 2022-10-19 23:27 | NUR ---
CALL TO HOSP CALL MADE REGARDING PT STATING SHE IS STILL HAVING NAUSEA. ZOFRAN ON EMAR BUT QTC IS PROLONGED ON ECG. ORDER RECEIVED FOR EKG AND ATIVAN FOR N/V. EKG QTC 489ms. AMIODARONE GTT CONTINUES. SEE FLOWSHEET. RATE NOW 80-90'S. SBP 100-120'S.
[2022-10-20] VITALS (36 sets, daily range): BP systolic 103–153; BP diastolic 72–113
[2022-10-20 03:52] LABS: BASOPHILS ABSOLUTE AUTO 0.04 K/mm3 (0.00-0.23); BASOPHILS PERCENT AUTO 0 % (0-2); EOSINOPHILS ABSOLUTE AUTO 0.04 K/mm3 (0.00-0.68); EOSINOPHILS PERCENT AUTO 0 % (0-6); Hematocrit 41.2 % (33.0-51.0); Hemoglobin 13.7 g/dL (11.5-16.0); IMMATURE GRAN ABSOLUTE AUTO 0.02 K/mm3 (0.00-0.10); IMMATURE GRAN PERCENT AUTO 0 % (0-1); LYMPHOCYTES ABSOLUTE AUTO 2.78 K/mm3 (0.84-5.20); LYMPHOCYTES PERCENT AUTO 28 % (21-46); MONOCYTES ABSOLUTE AUTO 0.76 K/mm3 (0.16-1.47); MONOCYTES PERCENT AUTO 8 % (4-13); Mean Corpuscular HGB 28.6 pg (26.0-34.0); Mean Corpuscular HGB Conc 33.3 g/dL (31.5-36.5); Mean Corpuscular Volume 86 fL (80-100); Mean Platelet Volume 11.1 fL (9.1-12.4); NEUTROPHILS ABSOLUTE AUTO 6.19 K/mm3 (1.96-9.15); NEUTROPHILS PERCENT AUTO 63 % (41-73); Platelet Count 305 K/mm3 (150-400); RDW Coefficient Variation 13.5 % (11.7-14.2); RDW Standard Deviation 41.7 fL (35.1-46.3); Red Blood Cell Count 4.79 M/mm3 (3.80-5.20); White Blood Cell Count 9.83 K/mm3 (4.00-11.30)
[2022-10-20 04:57] LABS: Bun/Creatinine Ratio 18.6 (12.0-20.0); Calcium, Blood 9.6 mg/dL (8.5-10.1); Creatinine, Blood 0.81 mg/dL (0.40-1.00); Magnesium, Blood 2.1 mg/dL (1.6-2.4); Phosphorus, Blood 2.3 mg/dL (2.5-4.9)
--- NOTE | 2022-10-20 05:43 | NUR ---
SHIFT SUMMARY NO ACUTE EVENTS T/O NIGHT. PT C/O NAUSEA THIS AM. STATES ATIVAN WORKED BETTER THEN PHENERGAN. MEDICATED PER EMAR. VSS. AMIODARONE GTT CONTINUES. PLAN TO STOP GTT AT 1030 AM. SR RATE 70-90'S. NO ARRHYTHMIA'S THIS SHIFT. ALFARO PATENT AND DRAINING TO GRAVITY. OUTPUT 250ML. EDUCATION PROVIDED REGARDING IGNITION RISK. PT VERBALIZED UNDERSTANDING. CALL LIGHT IN REACH. WILL REPORT OFF TO ONCOMING RN.
--- NOTE | 2022-10-20 08:05 | NUR ---
ASSUMED CARE: REPORT RECEIVED FROM VIJAY EDWARDS. ASSUMED CARE OF THIS PT AT APPROX 0700. ON ASSESSMENT, THE PT IS RESTING QUIETLY & AWAKENS EASILY TO VERBAL STIMULUS. SHE REMAINS DROWSY BUT IS ABLE TO AWAKEN FULLY/ IS A&O TO ALL AFTER A FEW MOMENTS. SHE HAS CHRONIC C/O BACK PAIN R/T MULTIPLE PRIOR SURGERIES & RIGHT KNEE PAIN R/T RECENT INJURY. LS DIM IN BASES, PT ON RA W/ O2 SATS > 92%. MONITOR SHOWS SR-ST W/ HR 70-100s, HTN W/ SCHEDULED AM MEDS PER EMAR. PT HAS NO CURRENT C/O NAUSEA, REMAINS NPO. STS HAVING NO BM x9 DAYS. SKIN OVERALL INTACT, PT ASSISTS W/ REPOSITIONING Q2H TO MAINTAIN SKIN INTEGRITY. FIRE HAZARD R/T FLAMMABLE OXYGEN & POSSIBLE IGNITION SOURCES REVIEWED, PT & FAMILY VERBALIZE UNDERSTANDING. NO NOTED RISK AT THIS TIME. WILL CONTINUE TO MONITOR & UPDATE NEEDED.
--- NOTE | 2022-10-20 11:00 | NUR ---
DR CONWAY: PROVIDER AT BEDSIDE TO EVAL PT THIS AM. HE HAS PROVIDED THE PT & HER W/ AN UPDATE REGARDING PLAN OF CARE AT THIS TIME. HE WOULD LIKE THE PT TO RECEIVE AN ANGIOGRAM DURING THIS HOSPITALIZATION, SCHEDULED FOR LATER TODAY W/ DR HOBBS. CONSENTS SIGNED & ON CHART. THIS RN REQUESTS DIET ORDER FOR THE PT ONCE RETURNED FROM THE FOOD SERVICE SPECIALIST & PROVIDER STS OKAY. HE ALSO STS PT OKAY TO TRANSFER TO PCU STATUS IF ANGIOGRAM RESULTS UNREMARKABLE. NO OTHER CHANGES AT THIS TIME.
[2022-10-20 12:59] LABS: Albumin, Blood 3.4 g/dL (3.4-5.0); Anion Gap 10 mmol/L (6-16); Blood Urea Nitrogen 17 mg/dL (8-24); CO2, Blood 27 mmol/L (21-32); Calcium, Blood 9.3 mg/dL (8.5-10.1); Chloride, Blood 103 mmol/L (98-108); Creatinine, Blood 0.81 mg/dL (0.40-1.00); Glomerular Filtration Rate 84 (60-); Glucose, Blood 146 mg/dL (70-99); Magnesium, Blood 1.6 mg/dL (1.6-2.4); Phosphorus, Blood 3.5 mg/dL (2.5-4.9); Potassium, Blood 3.4 mmol/L (3.5-5.5); Sodium, Blood 140 mmol/L (136-145)
--- NOTE | 2022-10-20 13:20 | NUR ---
HEART CENTER: PT OUT OF ROOM AT APPROX 1320 FOR SCHEDULED ANGIOGRAM. CONSENT HAS BEEN COMPLETED W/ DR CONWAY & PLACED ON CHART FOR HEART CENTER RN.
--- NOTE | 2022-10-20 14:15 | NUR ---
RETURN TO ICU: PT BACK FROM ANGIOGRAM. TR BAND IN PLACE TO RIGHT WRIST W/ 11 CC AIR INFLATED. AREA WNL; NO BLEEDING, BRUISING OR HEMATOMA FORMATION NOTED. CAP REFILL <3 SEC TO AFFECTED DIGITS & PT DENIES ISSUES W/ SENSATION. SPO2 READING 98-100% W/ STRONG PLETH NOTED ON MONITOR. OKAY TO BE PCU STATUS PER DR CONWAY. ORDERS PLACED FOR CARDIAC DIET THIS EVENING. NO OTHER CHANGES AT THIS TIME.
--- NOTE | 2022-10-20 18:15 | NUR ---
SHIFT SUMMARY: NO ACUTE CHANGES SINCE PRIOR UPDATES. PT REMAINS A&O TO ALL, PLEASANT & COOPERATIVE. SHE HAS BECOME SLIGHTLY MORE EMOTIONAL THIS EVENING SHE PROCESSES THE EVENTS OF PRIOR DAYS. SHE RESPONDS WELL TO VERBAL REASSURANCE & STS FEELING "OVERWHELMED." LS CLEAR T/O, PT ON RA W/ O2 SATS > 95% MONITOR SHOWS SR-ST W/ HR 80-100s, HTN W/ EVENING MEDS PER EMAR. PT HAS HAD ONE EPISODE OF NAUSEA & BELCHING THIS EVENING & IS UNABLE TO TOLERATE MAIN PORTION OF DINNER. ANTIEMETIC PER EMAR & PT ABLE TO TOLERATE APPLESAUCE & A DINNER ROLL WELL W/ NO FURTHER C/O NAUSEA. VOIDS URINE W/O DIFFICULTY USING BSC. 24 URINE IN PROGRESS, ENDING AT 0800 TOMORROW MORNING (10/21/22). SKIN CONDITION OVERALL INTACT, Q2H REPOSITIONING TO MAINTAIN SKIN INTEGRITY. ANGIOGRAM PUNCTURE SITE TO RIGHT RADIAL ARTERY WNL; TR BAND REMAINS IN PLACE, DEFLATION IN PROGRESS. NO BLEEDING, BRUISING OR HEMATOMA FORMATION NOTED. WILL CONTINUE TO MONITOR & UPDATE NEEDED.
--- NOTE | 2022-10-20 21:48 | NUR ---
ASSUMED CARE OF PT AT 1915 REPORT RECIEVED FROM VIJAY ZAFAR. PT IS A/O, RESTING IN BED. DENIES ANY NEW PAIN OR DISCOMFORT, DOES SUFFER FROM CHRONIC BACK AND KNEE PAIN, MEDICATION DUE AT 2100. ADMITS TO MODERATE LEVELS OF ANXIETY WORSENED BY HOSPITAL SETTING AND RECENT EVENTS, TEARFUL AT TIMES. PRN MEDICATION FOR ANXIETY AVAILABLE. SR, HYPERTENSIVE AT BASELINE BUT BP DECREASING EXPECTED AFTER ANTIHYPERTENSIVE MEDICATION ADMINISTERED. DENIES NAUSEA, BS HYPERACTIVE AND PT HAS EMISIS BAG IN REACH IF NEEDED. OOB TO ATTEMPT TO VOID, NO URINE OUTPUT, THIS IS BASELINE PER PT. 24 HOUR URINE COLLECTION IN PROCESS, TO BE COMPLETED 10/21/22 AT 0800. FREQUENT BM'S ON PREVIOUS SHIFT, COLACE HELD. SKIN UNCHANGED, ASSISTED OOB X2 TO BSC AND TO CHAIR. ENCOURAGED FREQUENT WEIGHT SHIFTS. PG TO LEFT UPPER ARM FLUSHES WITH GOOD BLOOD RETURN. PIV TO RIGHT AC FLUSHES WELL WITH GOOD BLOOD RETURN. CALL LIGHT WITHIN REACH, BED MOVEMENT CONTROLS WITHIN REACH. PT EDUCATED RE: IGNITION SOURCES ADN RISK OF INJURY WHILE OXYGEN IS IN USE. PT DENIES SMOKING AND VERBALIZES UNDERSTANDING. RN TO CONTINUE TO MONITOR
[2022-10-21] VITALS (7 sets, daily range): BP systolic 111–153; BP diastolic 74–122
--- NOTE | 2022-10-21 05:38 | NUR ---
NOC SHIFT SUMMARY PT ANXIETY EARLY IN THE SHIFT SUBSIDED WITH ATIVAN IV X1. SHE C/O NOT SLEEPING FOR THE LAST SEVERAL DAYS DUE TO ANXIETY AND OVERWHELM OF BEING IN THE HOSPITAL. FELL ASLEEP AFTER 2100 MEDICATIONS ADMINISTERED. SLEPT SOUNDLY THROUGHOUT THE NIGHT, AROUSES EASILY TO VOICE OR TOUCH. LUNGS CTA, O2 SAT > 94% ON RA. HR 80'S, SR WITH OCCAS PVC'S. NO NAUSEA OR VOMITING THIS SHIFT. NO BM ALTHOUGH OOB TO ATTEMPT X1 WITH NO SUCCESS. ATTEMPTED TO VOID X1 UNSUCESSFULLY, WILL CONTINUE TO COLLECT ANY URINE FOR 24 HOUR URINE SM. PIV TO RIGHT AC SL, PG TO LEFT UPPER ARM SL. NO FAMILY AT BEDSIDE. RN TO CONTINUE TO MONITOR.
[2022-10-21 06:32] LABS: BASOPHILS ABSOLUTE AUTO 0.02 K/mm3 (0.00-0.23); BASOPHILS PERCENT AUTO 0 % (0-2); EOSINOPHILS PERCENT AUTO 1 % (0-6); Hematocrit 37.5 % (33.0-51.0); Hemoglobin 12.5 g/dL (11.5-16.0); IMMATURE GRAN ABSOLUTE AUTO 0.02 K/mm3 (0.00-0.10); IMMATURE GRAN PERCENT AUTO 0 % (0-1); LYMPHOCYTES ABSOLUTE AUTO 2.37 K/mm3 (0.84-5.20); LYMPHOCYTES PERCENT AUTO 28 % (21-46); MONOCYTES ABSOLUTE AUTO 0.57 K/mm3 (0.16-1.47); MONOCYTES PERCENT AUTO 7 % (4-13); Mean Corpuscular HGB 29.1 pg (26.0-34.0); Mean Corpuscular HGB Conc 33.3 g/dL (31.5-36.5); Mean Corpuscular Volume 87 fL (80-100); NEUTROPHILS ABSOLUTE AUTO 5.32 K/mm3 (1.96-9.15); NEUTROPHILS PERCENT AUTO 63 % (41-73); Platelet Count 231 K/mm3 (150-400); RDW Coefficient Variation 13.7 % (11.7-14.2); RDW Standard Deviation 43.3 fL (35.1-46.3)
[2022-10-21 06:53] LABS: Albumin, Blood 2.9 g/dL (3.4-5.0); Anion Gap 6 mmol/L (6-16); Blood Urea Nitrogen 17 mg/dL (8-24); Bun/Creatinine Ratio 21.2 (12.0-20.0); CO2, Blood 27 mmol/L (21-32); Calcium, Blood 8.7 mg/dL (8.5-10.1); Chloride, Blood 107 mmol/L (98-108); Glomerular Filtration Rate 85 (60-); Glucose, Blood 134 mg/dL (70-99); Magnesium, Blood 1.8 mg/dL (1.6-2.4); Phosphorus, Blood 2.2 mg/dL (2.5-4.9); Potassium, Blood 3.4 mmol/L (3.5-5.5); Sodium, Blood 140 mmol/L (136-145)
--- NOTE | 2022-10-21 08:40 | NUR ---
ASSUMED CARE / DR CONWAY: REPORT RECEIVED FROM GAVI Solis RN. ASSUMED CARE OF THIS PT AT APPROX 0700. ON ASSESSMENT, THE PT IS RESTING QUIETLY. SHE IS DROWSY BUT AWAKENS TO VERBAL STIMULUS, IS A&O TO ALL AT THAT TIME BUT SLOW TO RESPOND. LS CLEAR T/O, PT ON RA W/ O2 SATS > 95%. MONITOR SHOWS SR W/ OCCASIONAL PVCs, HR 80-90s, HTN W/ SCHEDULED AM MEDS PER EMAR. PT HAS CONTINUED C/O "STOMACH UPSET" & POOR APPETITE WHICH SHE STS ARE CHRONIC ISSUES. TOLERATING SMALL AMNTS PO INTAKE WELL. VOIDS URINE & STL W/O DIFFICULTY USING BSC. SKIN CONDITION OVERALL INTACT. TR PUNCTURE SITE WNL; NO BLEEDING, BRUISING OR HEMATOMA FORMATION NOTED AT SITE. WRIST IMMOBILIZER REMAINS IN PLACE TO PROTECT SITE. DR CONWAY AT BEDSIDE THIS AM TO EVAL PT. HE FEELS THAT SHE COULD LIKELY GO HOME FROM A CARDIOLOGY STANDPOINT & HAS COMPLETED THE [employer] ORDER FORM. THIS FORM HAS BEEN FAXED TO [facility] BY BRYON CONTRERAS RN. DR CONWAY WILL SPEAK W/ DR SANTIAGO REGARDING CONCERNS FOR THIS PT TO DETERMINE IF SHE WILL BE ABLE TO DISCHARGE HOME TODAY. WILL CONTINUE TO MONITOR & UPDATE NEEDED.
--- NOTE | 2022-10-21 16:05 | NUR ---
Pt. is awake in bed and welcomes my visit. Spouse is present. Pt. displays evidence of discomfort primarily from previous surgeries, but is enaged, aware, and involved in understanding her diagnosis. Facilitate a life review and establish rapport. Pt. verbalizes the trajectory of her medical journey. Listen with empathy, interest and a calming presence. Spouse also displayed evidence of needing validation and needing to be heard. Spent significant time with Pt. and spouse. Pastoral encouragement is given as is prayer. Pt. and spouse verbalize gratitude for the spiritual care visit.
--- NOTE | 2022-10-21 17:57 | NUR ---
SHIFT SUMMARY / TRANSFER TO MEDICAL FLOOR: NO ACUTE CHANGES SINCE PRIOR UPDATES. PT REMAINS A&O, PLEASANT & COOPERATIVE W/ CARE. INCREASED ANXIETY AT TIMES R/T BEING "HOMESICK," ATIVAN PER EMAR. LS CLEAR T/O, PT ON RA W/ O2 SATS > 95%. MONITOR SHOWS SR W/ HR 80-90s, BP STABLE. PT TOLERATING PO INTAKE WELL THIS AFTERNOON & REPORT INCREASED APPETITE. IMODIUM GIVEN PER PT REQUEST FOR CONTINUED LOOSE/ UNFORMED STLS. PT VOIDING URINE W/O DIFFICULTY. ONE PERSON ASSIST TO BSC. SKIN CONDITION OVERALL INTACT, PT ASSISTS W/ REPOSITIONING APPROX Q2H. TR PUNCTURE SITE TO RIGHT WRIST WNL; NO BLEEDING, BRUISING OR HEMATOMA FORMATION NOTED. CLEAR OCCLUSIVE DRESSING CDI & WRIST IMMOBILIZER REMAINS IN PLACE. REPORT HAS BEEN GIVEN TO MERLIN Flores RN TO ASSUME CARE ON MEDICAL FLOOR. PT TX TO ROOM 359 VIA WC AT APPROX 1800. CHART & ALL BELONGINGS TAKEN UP W/ PT AT THAT TIME.
--- NOTE | 2022-10-21 18:21 | NUR ---
ASSUMED CARE OF PATIENT UPON HER ARRIVAL FROM ICU 4 AT 1815 VIA W/C. PT ABLE TO TRANSFER TO BED WITH 2 PERSON ASSIST. A&O X 4, PLEASANT, APPEARS A BIT ANXIOUS. C/O CHRONIC BACK PAIN FROM NUMEROUS SURGERIES, "", PAIN MEDICATION NOT DUE, DECLINED OFFERED HEATING PAD. ON ROOM AIR. CALL LIGHT AND ROOM TELEPHONE IN REACH, BED ALARM ON.
--- NOTE | 2022-10-21 22:52 | NUR ---
NURSE NOTE. PT RECEIVED FIRE IGNITION NO SMOKING WHILE ON O2, NO SMOKING IN HOSP EARLIER. CALL LIGHT IN REACH
[2022-10-21] MEDS ORDERED: CELEXA40 M9 PO (23:58)
[2022-10-21] MEDS ORDERED: BACLOFEN10 M4 PO (23:58)
[2022-10-22] MEDS ORDERED: GABA400 PO
[2022-10-22] MEDS ORDERED: Oxybutynin Chlo10 MG PO (00:01)
[2022-10-22 01:47] VITALS: BP 131/77
--- NOTE | 2022-10-22 03:02 | NUR ---
PUMP OPERATOR SUMMARY VSS. VERBAL RESPONSE APPROPRIATE. ALERT AND ORIENTED X4. MED TELE SINUS IN THE 70'S. OLIGURIC - OUTPUT 100 OF THIS WRITING THIS SHIFT. VOICED SOME ANXIETY AND HEADACHES. RECEIVED ATIVAN AND TYLENOL - SEE MAR FOR DETAILS. MEDS EFFECTIVE. HAS BEEN RESTING QUIETLY WITH FEW INTERRUPTIONS THIS SHIFT. CALL LIGHT IN REACH. WILL CONTINUE TO MONITOR
[2022-10-22 05:37] VITALS: BP 149/84
[2022-10-22 06:13] LABS: BASOPHILS ABSOLUTE AUTO 0.03 K/mm3 (0.00-0.23); BASOPHILS PERCENT AUTO 0 % (0-2); EOSINOPHILS ABSOLUTE AUTO 0.11 K/mm3 (0.00-0.68); EOSINOPHILS PERCENT AUTO 2 % (0-6); Hemoglobin 11.5 g/dL (11.5-16.0); IMMATURE GRAN ABSOLUTE AUTO 0.02 K/mm3 (0.00-0.10); IMMATURE GRAN PERCENT AUTO 0 % (0-1); LYMPHOCYTES ABSOLUTE AUTO 2.23 K/mm3 (0.84-5.20); LYMPHOCYTES PERCENT AUTO 30 % (21-46); MONOCYTES PERCENT AUTO 7 % (4-13); Mean Corpuscular HGB Conc 32.9 g/dL (31.5-36.5); Mean Corpuscular Volume 88 fL (80-100); Mean Platelet Volume 11.3 fL (9.1-12.4); NEUTROPHILS ABSOLUTE AUTO 4.54 K/mm3 (1.96-9.15); NEUTROPHILS PERCENT AUTO 61 % (41-73); Platelet Count 211 K/mm3 (150-400); RDW Coefficient Variation 13.6 % (11.7-14.2); RDW Standard Deviation 43.8 fL (35.1-46.3); Red Blood Cell Count 3.97 M/mm3 (3.80-5.20); White Blood Cell Count 7.43 K/mm3 (4.00-11.30)
[2022-10-22 06:38] LABS: Albumin, Blood 2.9 g/dL (3.4-5.0); Anion Gap 6 mmol/L (6-16); Blood Urea Nitrogen 22 mg/dL (8-24); CO2, Blood 26 mmol/L (21-32); Calcium, Blood 8.5 mg/dL (8.5-10.1); Chloride, Blood 106 mmol/L (98-108); Creatinine, Blood 0.88 mg/dL (0.40-1.00); Glomerular Filtration Rate 76 (60-); Glucose, Blood 131 mg/dL (70-99); Magnesium, Blood 1.4 mg/dL (1.6-2.4); Phosphorus, Blood 3.2 mg/dL (2.5-4.9); Potassium, Blood 3.5 mmol/L (3.5-5.5); Sodium, Blood 138 mmol/L (136-145)
[2022-10-22 07:29] VITALS: BP 152/73
[2022-10-22] MEDS ORDERED: CARV25 PO (15:05)
[2022-10-22] MEDS ORDERED: PROM25 PO (15:06)
[2022-10-22] MEDS ORDERED: SPIR25 PO (15:07)
[2022-10-22] MEDS ORDERED: ATOR40TA PO (15:08)
--- NOTE | 2022-10-22 16:32 | NUR ---
P.t is awake in bed and welcomesmy visit. Spouse is present. Both Spouse and Pt. are unsettled by the delay in being fitted for a heart monitoring vest. There verbal frustration on the part of the couple. Listened with empathy and apologized for the perceived offense. The Pt. displayed a lower level of frustration, though the spouse continued in his frustration. Facilitated more of a life review and sought to normalize the Pt. hospital experience. This elementary science teacher was called out to another need. Pt. verbalized gratitude for the spiritual care visit.
[2022-10-22 17:40] VITALS: BP 164/95
--- NOTE | 2022-10-22 18:22 | NUR ---
1808 DISCHARGED HOME, INFORMATION GIVEN TO PATIENT AND BOYFRIEND, BOTH STATED UNDERSTANDING OF FOLLOW UP NEEDS, EDUCATION, AND MEDICATIONS, LIFEVEST GLAZE HANDLER GAVE EDUCATION TO BOTH PATIENT AND BOYFRIEND
[2022-10-24 22:09] LABS: 5-HIAA, URINE 7.6 mg/L (Undefined); CREATININE, URINE 211.1 mg/dL (Not Estab.)
== END 2022-10-22 18:10 | disposition home or self-care (01) | DRG 286 ==
LOC: ER 20:30 → ICUE 10-19 02:05 → MEDS 10-21 18:16
PROVIDERS: Family Medicine; Internal Medicine; Internal Medicine Nephrology; Nurse Practitioner Acute Care; Student in an Organized Health Care Education/Training Program; ADMIT Internal Medicine
PROC: 5A2204Z Restoration of Cardiac Rhythm, Single (ICD-10-PCS; 2022-10-19)
PROC: 4A033R1 Measurement of Arterial Saturation, Peripheral, Percutaneous Approach (ICD-10-PCS; 2022-10-19)
PROC: 5A1935Z Respiratory Ventilation, Less than 24 Consecutive Hours (ICD-10-PCS; 2022-10-19)
PROC: 0BH17EZ Insertion of Endotracheal Airway into Trachea, Via Natural or Artificial Opening (ICD-10-PCS; 2022-10-19)
PROC: 0DH67UZ Insertion of Feeding Device into Stomach, Via Natural or Artificial Opening (ICD-10-PCS; 2022-10-19)
PROC: 4A023N7 Measurement of Cardiac Sampling and Pressure, Left Heart, Percutaneous Approach (ICD-10-PCS; principal; 2022-10-20)
PROC: B2111ZZ Fluoroscopy of Multiple Coronary Arteries using Low Osmolar Contrast (ICD-10-PCS; 2022-10-20)
PROC: B241ZZ3 Ultrasonography of Multiple Coronary Arteries, Intravascular (ICD-10-PCS; 2022-10-20)
DX: I47.1 Supraventricular tachycardia (principal); G92.8 Other toxic encephalopathy; I16.1 Hypertensive emergency; I67.4 Hypertensive encephalopathy; N25.81 Secondary hyperparathyroidism of renal origin; I13.0 Hypertensive heart and chronic kidney disease with heart failure and stage 1 through stage 4 chronic kidney disease, or unspecified chronic kidney disease; N17.9 Acute kidney failure, unspecified; I67.9 Cerebrovascular disease, unspecified; G89.4 Chronic pain syndrome; M10.9 Gout, unspecified; E87.6 Hypokalemia; E83.39 Other disorders of phosphorus metabolism; E03.9 Hypothyroidism, unspecified; F41.8 Other specified anxiety disorders; I48.0 Paroxysmal atrial fibrillation; I47.20 Ventricular tachycardia, unspecified; N18.30 Chronic kidney disease, stage 3 unspecified; E83.42 Hypomagnesemia; G47.00 Insomnia, unspecified; J44.9 Chronic obstructive pulmonary disease, unspecified; E78.5 Hyperlipidemia, unspecified; K21.9 Gastro-esophageal reflux disease without esophagitis; F12.90 Cannabis use, unspecified, uncomplicated; I95.9 Hypotension, unspecified; D63.1 Anemia in chronic kidney disease; E86.9 Volume depletion, unspecified; I50.9 Heart failure, unspecified; E88.09 Other disorders of plasma-protein metabolism, not elsewhere classified; Z88.8 Allergy status to other drugs, medicaments and biological substances; Z88.1 Allergy status to other antibiotic agents; Z98.890 Other specified postprocedural states; Z90.49 Acquired absence of other specified parts of digestive tract; Z87.19 Personal history of other diseases of the digestive system; Z88.0 Allergy status to penicillin; Z71.51 Drug abuse counseling and surveillance of drug abuser; Z90.710 Acquired absence of both cervix and uterus; Z90.722 Acquired absence of ovaries, bilateral; Z88.2 Allergy status to sulfonamides; Z79.82 Long term (current) use of aspirin; Z79.899 Other long term (current) drug therapy; Z79.51 Long term (current) use of inhaled steroids
CPT/HCPCS: 31500; 36415; 36600; 51702; 70450; 70496; 70498; 71045; 76770; 76937; 80048; 80053; 80069; 81001; 82803; 83605; 83735; 84100; 84443; 84484; 85025; 93005; 93010; 93458; 93975; 94002; 94640; 94664; 94760; 96372-59; 96374-59; 96375-59; 96376; 99152; 99285-25; A9270; C1751; C1769; C1887; C1894; C8929; G0480; J0282; J1644; J1650; J2060; J2250; J2405; J2704; J3010; J3475; J3480; J7030; J7040; J7050; J7060; Q9957; Q9967

== ENCOUNTER 2022-12-15 19:19 | Emergency (ER) | payer OTHER ==
[~2022-12-15] VITALS: Ht 167.6 cm; Wt 92.5 kg
[~2022-12-15 19:19] MED LIST changes: +ATOR40TA PO; +BACLOFEN10 M4 PO; +CARV25 PO; +CELEXA40 M9 PO; +Oxybutynin Chlo10 MG PO; +SPIR25 PO
[2022-12-15 19:58] LABS: BASOPHILS ABSOLUTE AUTO 0.02 K/mm3 (0.00-0.23); BASOPHILS PERCENT AUTO 0 % (0-2); EOSINOPHILS ABSOLUTE AUTO 0.13 K/mm3 (0.00-0.68); EOSINOPHILS PERCENT AUTO 2 % (0-6); Hematocrit 37.4 % (33.0-51.0); Hemoglobin 12.1 g/dL (11.5-16.0); IMMATURE GRAN ABSOLUTE AUTO 0.01 K/mm3 (0.00-0.10); IMMATURE GRAN PERCENT AUTO 0 % (0-1); LYMPHOCYTES ABSOLUTE AUTO 1.44 K/mm3 (0.84-5.20); LYMPHOCYTES PERCENT AUTO 24 % (21-46); MONOCYTES ABSOLUTE AUTO 0.34 K/mm3 (0.16-1.47); MONOCYTES PERCENT AUTO 6 % (4-13); Mean Corpuscular HGB 29.1 pg (26.0-34.0); Mean Corpuscular HGB Conc 32.4 g/dL (31.5-36.5); Mean Corpuscular Volume 90 fL (80-100); Mean Platelet Volume 10.8 fL (9.1-12.4); NEUTROPHILS PERCENT AUTO 67 % (41-73); Platelet Count 190 K/mm3 (150-400); RDW Standard Deviation 42.7 fL (35.1-46.3); Red Blood Cell Count 4.16 M/mm3 (3.80-5.20); White Blood Cell Count 5.94 K/mm3 (4.00-11.30)
[2022-12-15 20:08] LABS: Albumin, Blood 3.3 g/dL (3.4-5.0); Albumin/Globulin Ratio 0.9 (0.8-1.8); Bilirubin, Total 0.3 mg/dL (0.1-1.0); Bun/Creatinine Ratio 22.2 (12.0-20.0); Calcium, Blood 8.8 mg/dL (8.5-10.1); Creatinine, Blood 0.99 mg/dL (0.40-1.00); Globulin, Blood 3.6 g/dL (2.2-4.0); Potassium, Blood 4.3 mmol/L (3.5-5.5); Total Protein, Blood 6.9 g/dL (6.4-8.2)
[2022-12-15 20:12] LABS: International Normalized Ratio 0.89; Prothrombin Time Results 9.4 Sec (9.7-11.5)
[2022-12-15 20:45] VITALS: BP 147/78
[2022-12-15] MEDS ORDERED: NITR.4SL SL (23:09)
== END 2022-12-15 23:22 | disposition home or self-care (01) ==
LOC: ER 19:19
PROVIDERS: Emergency Medicine
DX: R07.2 Precordial pain (principal); Z88.8 Allergy status to other drugs, medicaments and biological substances; Z88.0 Allergy status to penicillin; Z88.2 Allergy status to sulfonamides; Z88.1 Allergy status to other antibiotic agents; Z79.899 Other long term (current) drug therapy; J44.9 Chronic obstructive pulmonary disease, unspecified; M10.9 Gout, unspecified; E78.5 Hyperlipidemia, unspecified; I12.9 Hypertensive chronic kidney disease with stage 1 through stage 4 chronic kidney disease, or unspecified chronic kidney disease; N18.9 Chronic kidney disease, unspecified
CPT/HCPCS: 71046; 80053; 84484; 85025; 85610; 93005; 93010; 99285-25

== ENCOUNTER 2023-05-19 09:44 | Emergency (ER) | payer OTHER ==
[~2023-05-19] VITALS: Ht 165.1 cm; Wt 90.7 kg
[~2023-05-19 09:44] MED LIST changes: +NITR.4SL SL
[2023-05-19 10:47] LABS: BASOPHILS ABSOLUTE AUTO 0.02 K/mm3 (0.00-0.23); BASOPHILS PERCENT AUTO 0 % (0-2); EOSINOPHILS ABSOLUTE AUTO 0.07 K/mm3 (0.00-0.68); EOSINOPHILS PERCENT AUTO 1 % (0-6); Hematocrit 38.6 % (33.0-51.0); Hemoglobin 12.2 g/dL (11.5-16.0); IMMATURE GRAN ABSOLUTE AUTO 0.02 K/mm3 (0.00-0.10); IMMATURE GRAN PERCENT AUTO 0 % (0-1); LYMPHOCYTES ABSOLUTE AUTO 1.76 K/mm3 (0.84-5.20); LYMPHOCYTES PERCENT AUTO 29 % (21-46); MONOCYTES ABSOLUTE AUTO 0.35 K/mm3 (0.16-1.47); MONOCYTES PERCENT AUTO 6 % (4-13); Mean Corpuscular HGB 28.8 pg (26.0-34.0); Mean Corpuscular HGB Conc 31.6 g/dL (31.5-36.5); Mean Corpuscular Volume 91 fL (80-100); Mean Platelet Volume 11.6 fL (9.1-12.4); NEUTROPHILS ABSOLUTE AUTO 3.82 K/mm3 (1.96-9.15); NEUTROPHILS PERCENT AUTO 63 % (41-73); Platelet Count 204 K/mm3 (150-400); RDW Coefficient Variation 14.3 % (11.7-14.2); RDW Standard Deviation 47.2 fL (35.1-46.3); Red Blood Cell Count 4.24 M/mm3 (3.80-5.20); White Blood Cell Count 6.04 K/mm3 (4.00-11.30)
[2023-05-19 11:06] LABS: Albumin, Blood 3.3 g/dL (3.4-5.0); Albumin/Globulin Ratio 0.8 (0.8-1.8); Bilirubin, Total 0.3 mg/dL (0.1-1.0); Bun/Creatinine Ratio 34.7 (12.0-20.0); Calcium, Blood 9.1 mg/dL (8.5-10.1); Creatinine, Blood 0.75 mg/dL (0.40-1.00); Globulin, Blood 3.9 g/dL (2.2-4.0); Magnesium, Blood 1.6 mg/dL (1.6-2.4); Potassium, Blood 4.4 mmol/L (3.5-5.5); Total Protein, Blood 7.2 g/dL (6.4-8.2)
[2023-05-19] MEDS ORDERED: Prochlorperazine Edisylate 10 mg Vial IV ONE (11:30)
[2023-05-19] MEDS ORDERED: DiphenhydrAMINE HCl 50 MG/ML 1ML Vial IV ONE (11:35)
[2023-05-19] MEDS ORDERED: Dexamethasone Sod Phos 10 MG/ML 1ML VIAL IV ONE (11:35)
[2023-05-19 11:45] VITALS: BP 190/110
[2023-05-19] MEDS ORDERED: PROM25 PO (12:04)
== END 2023-05-19 12:06 | disposition home or self-care (01) ==
LOC: ER 09:44
PROVIDERS: Physician Assistant
DX: S00.93XA Contusion of unspecified part of head, initial encounter (principal); J44.9 Chronic obstructive pulmonary disease, unspecified; G89.4 Chronic pain syndrome; F41.9 Anxiety disorder, unspecified; F32.A Depression, unspecified; I12.9 Hypertensive chronic kidney disease with stage 1 through stage 4 chronic kidney disease, or unspecified chronic kidney disease; N18.9 Chronic kidney disease, unspecified; E78.5 Hyperlipidemia, unspecified; M32.9 Systemic lupus erythematosus, unspecified; Z88.8 Allergy status to other drugs, medicaments and biological substances; Z88.0 Allergy status to penicillin; Z88.2 Allergy status to sulfonamides; Z88.6 Allergy status to analgesic agent; Z79.899 Other long term (current) drug therapy; Z79.890 Hormone replacement therapy; W19.XXXA Unspecified fall, initial encounter
CPT/HCPCS: 70450; 80053; 83735; 85025; 93005; 93010; 96374; 96375; 99284-25; J0780; J1100; J1200

== ENCOUNTER 2024-04-19 15:12 | Emergency (ER) | payer OTHER ==
[~2024-04-19] VITALS: Ht 165.1 cm; Wt 99.8 kg
[~2024-04-19 15:12] MED LIST changes: +Pepcid40 MG PO
[2024-04-19] MEDS ORDERED: Morphine Sulfate 4 MG/1 ML Injection IV ONE (17:30)
[2024-04-19] MEDS ORDERED: Ondansetron HCl 2 MG / ML 2ML Vial IV ONE (17:30)
[2024-04-19 17:46] LABS: BASOPHILS ABSOLUTE AUTO 0.05 K/mm3 (0.00-0.23); BASOPHILS PERCENT AUTO 0 % (0-2); EOSINOPHILS ABSOLUTE AUTO 0.01 K/mm3 (0.00-0.68); EOSINOPHILS PERCENT AUTO 0 % (0-6); Hemoglobin 15.2 g/dL (11.5-16.0); IMMATURE GRAN ABSOLUTE AUTO 0.06 K/mm3 (0.00-0.10); IMMATURE GRAN PERCENT AUTO 0 % (0-1); LYMPHOCYTES ABSOLUTE AUTO 1.66 K/mm3 (0.84-5.20); LYMPHOCYTES PERCENT AUTO 11 % (21-46); MONOCYTES ABSOLUTE AUTO 0.49 K/mm3 (0.16-1.47); MONOCYTES PERCENT AUTO 3 % (4-13); Mean Corpuscular HGB 29.3 pg (26.0-34.0); Mean Corpuscular HGB Conc 33.8 g/dL (31.5-36.5); Mean Corpuscular Volume 87 fL (80-100); Mean Platelet Volume 10.3 fL (9.1-12.4); NEUTROPHILS ABSOLUTE AUTO 12.31 K/mm3 (1.96-9.15); NEUTROPHILS PERCENT AUTO 84 % (41-73); Platelet Count 332 K/mm3 (150-400); RDW Coefficient Variation 12.6 % (11.7-14.2); RDW Standard Deviation 39.9 fL (35.1-46.3); Red Blood Cell Count 5.18 M/mm3 (3.80-5.20); White Blood Cell Count 14.58 K/mm3 (4.00-11.30)
[2024-04-19 18:10] LABS: Bun/Creatinine Ratio 27.8 (12.0-20.0); Calcium, Blood 9.8 mg/dL (8.5-10.1); Creatinine, Blood 0.79 mg/dL (0.40-1.00); Magnesium, Blood 1.7 mg/dL (1.6-2.4); Potassium, Blood 4.3 mmol/L (3.5-5.5)
[2024-04-19] MEDS ORDERED: Carvedilol 25 MG Tab PO ONE (19:50)
[2024-04-19] MEDS ORDERED: HYDROmorphone HCl/Pf 1MG SYR IV ONE (19:50)
[2024-04-19] MEDS ORDERED: Metoclopramide HCl 5MG / ML 2ML Vial IV ONE (19:55)
[2024-04-19 21:45] VITALS: BP 165/109
[2024-04-19] MEDS ORDERED: ONDA4 PO (21:52)
== END 2024-04-19 22:03 | disposition home or self-care (01) ==
LOC: ER 15:12
PROVIDERS: Emergency Medicine
DX: I16.0 Hypertensive urgency (principal); I12.9 Hypertensive chronic kidney disease with stage 1 through stage 4 chronic kidney disease, or unspecified chronic kidney disease; N18.9 Chronic kidney disease, unspecified; R11.2 Nausea with vomiting, unspecified; K76.0 Fatty (change of) liver, not elsewhere classified; J44.9 Chronic obstructive pulmonary disease, unspecified; E78.5 Hyperlipidemia, unspecified
CPT/HCPCS: 71045; 74177; 80048; 83735; 84484; 85025; 93005; 93010; 96374-59; 96375; 99285-25; A9270; J1171; J2270; J2765; Q9967

== ENCOUNTER 2024-08-10 07:12 | Day surgery (SDC) | payer OTHER ==
[2024-08-10] VITALS (14 sets, daily range): BP systolic 120–158; BP diastolic 81–93
[~2024-08-10] VITALS: Ht 165.1 cm; Wt 104.6 kg
[~2024-08-10 07:12] MED LIST changes: +BREYNA 160-4.10.3 GM INH; +BUME2 PO; +C COMPLEX1000 M1 PO; +CALCIUM 1,0001 EAC1; +DILT120 PO; +DROXIDOPA100 MG PO; +EPIPEN0.3 MG/0.3 IM; +ERGO400 PO; +Isosorbide Mono30 MG PO; +LIDOCAINE1 EACH TOP; +MULTI-VITAMIN1 EAC2 PO; +ONDA4 PO; +POTA10T PO; +SERT50 PO; +[UNRECOGNIZED DRUG - OTHER]
[2024-08-10] MEDS ORDERED: Lactated Ringer's 1,000 ML IV SCH (07:45)
[2024-08-10] MEDS ORDERED: CeFAZolin Sodium 2,000 MG in NS 100 ML IV SCH (07:45)
--- NOTE | 2024-08-10 08:21 | NUR ---
History, Chart, Medications and Allergies reviewed before start of procedure. Patient confirms NPO status and agrees with scheduled surgery. Pre-Op teaching done. Pt verbalizes understanding. Patient reports completing Chlorhexadine shower X2 prior to admission to hospital. LUNG SOUNDS WITH EXP WHEEZES AND DIMINISHED BASES.
[2024-08-10] MEDS ORDERED: CeFAZolin Sodium 2,000 MG VIAL ONE (08:24)
[2024-08-10] MEDS ORDERED: propofoL 20 ML IV ONE (08:33)
[2024-08-10] MEDS ORDERED: FentaNYL Citrate 50 MCG/ML 2 ML Injection ONE (08:33)
[2024-08-10] MEDS ORDERED: Ipratropium/Albuterol SulF 2.5-0.5MG/3 ML Amp INH ONE (08:35)
[2024-08-10] MEDS ORDERED: Bupivacaine 0.5% HCl 5 MG/ML 30MLVIAL ONE (09:07)
--- NOTE | 2024-08-10 09:14 | NUR ---
BREATHING TX GIVEN RECENTLY PER ANESTHESIA. DISCUSSED GIVEN WITH ANESTHESIA. PT REPORTED THAT SHE HAS HAD MULTIPLE BREATHING TX'S WITHOUT DIFFICULTY.
[2024-08-10] MEDS ORDERED: Midazolam HCl 1MG / ML 2ML Vial IV ONE (09:20)
[2024-08-10] MEDS ORDERED: Midazolam HCl 1MG / ML 2ML Vial ONE (09:25)
[2024-08-10] MEDS ORDERED: Dexamethasone Sod Phos 10 MG/ML 1ML VIAL ONE (09:41)
[2024-08-10] MEDS ORDERED: Ondansetron HCl 2 MG / ML 2ML Vial ONE ×2 (09:41→11:09)
[2024-08-10] MEDS ORDERED: Morphine Sulfate 4 MG/1 ML Injection ONE ×3 (10:48→11:17)
[2024-08-10] MEDS ORDERED: OxyCODONE HCL 5 MG TAB PO PRN (11:00)
--- NOTE | 2024-08-10 12:00 | NUR ---
PT TOLERATED FLUIDS. PT REPORTS PAIN DECREASING.
--- NOTE | 2024-08-10 12:13 | NUR ---
Discharge instructions reviewed with patient. Patient verbalizes understanding. Copy given to patient to take home. Patient States Post-Procedure ride home has been arranged. Discharged via wheelchair to private car for ride home.
== END 2024-08-10 12:05 | disposition home or self-care (01) ==
LOC: ORSCMMR 07:12 → ORD 09:00 → ORSCMMR 09:00
PROVIDERS: Surgery
PROC: 0HBU3ZX Excision of Left Breast, Percutaneous Approach, Diagnostic (ICD-10-PCS; principal; 2024-08-10 09:00)
DX: N63.20 Unspecified lump in the left breast, unspecified quadrant (principal); E78.5 Hyperlipidemia, unspecified; I25.10 Atherosclerotic heart disease of native coronary artery without angina pectoris; I48.0 Paroxysmal atrial fibrillation; I12.9 Hypertensive chronic kidney disease with stage 1 through stage 4 chronic kidney disease, or unspecified chronic kidney disease; N18.9 Chronic kidney disease, unspecified; I25.2 Old myocardial infarction; E03.9 Hypothyroidism, unspecified; F41.8 Other specified anxiety disorders; E66.9 Obesity, unspecified; Z68.38 Body mass index [BMI] 38.0-38.9, adult; Z79.899 Other long term (current) drug therapy
CPT/HCPCS: 88305; A9270; J0690; J1100; J2250; J2270; J2405; J2704; J3010; J7120

== ENCOUNTER → 2025-03-29 | Outpatient (CLI) | payer OTHER ==
[~2025-03-29] MED LIST changes: +Aspir 8181 MG PO; +BREYNA 160-4.10.3 GM PO; +CARTIA XT PO; +HYDCHL25 PO; +LIDO700A20 TOP; +OXYCODONE HCL5 MG PO
[2025-04-02 08:13] LABS: 6-ACETYLMORPHINE, URN, QUANT <10 ng/mL; CODEINE, URN, QUANT <20 ng/mL; HYDROCODONE, URN, QUANT <20 ng/mL; HYDROMORPHONE, URN, QUANT <20 ng/mL; MORPHINE, URN, QUANT <20 ng/mL; NORHYDROCODONE, URN, QUANT <20 ng/mL; NOROXYCODONE, URN, QUANT >4000 ng/mL; NOROXYMORPHONE, URN, QUANT 335 ng/mL; OXYCODONE, URN, QUANT 1570 ng/mL; OXYMORPHONE, URN, QUANT <20 ng/mL
== END ==
LOC: LAB SHORT 14:49 → LAB 14:49
PROVIDERS: Family Medicine
DX: Z79.899 Other long term (current) drug therapy (principal)
CPT/HCPCS: G0480

== ENCOUNTER 2025-04-05 23:28 | Inpatient (IN) | payer OTHER ==
[~2025-04-05] VITALS: Ht 165.1 cm; Wt 104.3 kg
[~2025-04-05 23:28] MED LIST changes: -BREYNA 160-4.10.3 GM PO
[2025-04-05] MEDS ORDERED: Ondansetron HCl 2 MG / ML 2ML Vial IV ONE (23:35)
[2025-04-05] MEDS ORDERED: FentaNYL Citrate 50 MCG/ML 2 ML Injection IV ONE (23:35)
[2025-04-06] MEDS ORDERED: HYDROmorphone HCl/Pf 1MG SYR IV PRN ×3 (00:25→08:50)
[2025-04-06 00:41] LABS: BASOPHILS ABSOLUTE AUTO 0.04 K/mm3 (0.00-0.23); BASOPHILS PERCENT AUTO 0 % (0-2); EOSINOPHILS ABSOLUTE AUTO 0.08 K/mm3 (0.00-0.68); EOSINOPHILS PERCENT AUTO 1 % (0-6); Hematocrit 38.6 % (33.0-51.0); Hemoglobin 12.6 g/dL (11.5-16.0); IMMATURE GRAN ABSOLUTE AUTO 0.03 K/mm3 (0.00-0.10); IMMATURE GRAN PERCENT AUTO 0 % (0-1); LYMPHOCYTES ABSOLUTE AUTO 1.98 K/mm3 (0.84-5.20); LYMPHOCYTES PERCENT AUTO 18 % (21-46); MONOCYTES ABSOLUTE AUTO 0.49 K/mm3 (0.16-1.47); MONOCYTES PERCENT AUTO 5 % (4-13); Mean Corpuscular HGB Conc 32.6 g/dL (31.5-36.5); Mean Corpuscular Volume 89 fL (80-100); NEUTROPHILS ABSOLUTE AUTO 8.19 K/mm3 (1.96-9.15); NEUTROPHILS PERCENT AUTO 76 % (41-73); NRBC ABSOLUTE 0.00 K/mm3 (0.00-0.02); NRBC Auto 0.0 /100 WBC (0.0-0.2); Platelet Count 212 K/mm3 (150-400); RDW Coefficient Variation 14.5 % (11.7-14.2); RDW Standard Deviation 46.8 fL (35.1-46.3)
[2025-04-06 00:57] LABS: Alanine Aminotransfer (ALT/SGP 19 U/L (12-78); Albumin, Blood 3.7 g/dL (3.4-5.0); Albumin/Globulin Ratio 1.0 (0.8-1.8); Anion Gap 12 mmol/L (3-11); Aspartate Aminotrans (AST/SGOT 24 U/L (12-37); Bilirubin, Total 1.1 mg/dL (0.1-1.0); Blood Urea Nitrogen 30 mg/dL (8-24); CO2, Blood 23 mmol/L (21-32); Calcium, Blood 9.5 mg/dL (8.5-10.1); Chloride, Blood 102 mmol/L (98-108); Creatinine, Blood 1.03 mg/dL (0.40-1.00); Ethanol (Alcohol), Blood, Med <3 mg/dL; Globulin, Blood 3.6 g/dL (2.2-4.0); Glucose, Blood 152 mg/dL (70-99); Potassium, Blood 4.0 mmol/L (3.5-5.5); Sodium, Blood 133 mmol/L (136-145); Total Protein, Blood 7.3 g/dL (6.4-8.2)
[2025-04-06] MEDS ORDERED: Propofol 10mg/ml 20 ml Vial (Procedural) IV SCH (01:15)
[2025-04-06] MEDS ORDERED: NS 1,000 ML IV ONE (02:48)
[2025-04-06] MEDS ORDERED: NS 1,000 ML IV SCH (03:30)
[2025-04-06] MEDS ORDERED: Ondansetron HCl 2 MG / ML 2ML Vial IV PRN (04:25)
[2025-04-06] MEDS ORDERED: Naloxone HCl 0.4MG / ML 1ML Vial IV PRN (04:25)
[2025-04-06] MEDS ORDERED: FLU VACC TS2025-26(6MOS UP)/PF 45 MCG/0.5 ML SYRINGE IM SCH (04:30)
[2025-04-06] MEDS ORDERED: HYDROmorphone HCl/Pf 1MG SYR IV ONE ×2 (05:00→14:20)
[2025-04-06 08:39] LABS: Prothrombin Time Results 10.9 Sec (9.7-11.5)
[2025-04-06 08:49] VITALS: BP 145/87
--- NOTE | 2025-04-06 08:50 | NUR ---
PT TO ROOM 214. R ANKLE REDUCED AND IN ORTHOGLASS SPLINT SECURED WITH LONG WRAP. PT ORIENTED TO ROOM. VS STABLE. sl X-2 FLUSHED AND FUNCTIONAL. WILL CONTINUE TO MONITOR.
[2025-04-06] MEDS ORDERED: LORazepam 2 MG/ML 1ML Injection IV ONE (14:20)
[2025-04-06 15:52] VITALS: BP 137/94
--- NOTE | 2025-04-06 17:39 | NUR ---
SHIFT SUMMARY PT RESTING. TAKING OXYCODONE AND DILAUDID IV FOR BREAKTHROUGH PAIN. PT WAS REDUCED BY DR SLADE AND DR DOMINGUEZ AND RESPLINTED WITH ORTHOGLASS STIRRUP/POSTERIOR PLACED AFTER REDUCTION ON FLOOR. IV INFUSING L HAND AT 75/HR. PT WILL BE NPO AFTER MIDNIGHT FOR TRIMALLEOLAR FX REPAIR BY DR DOMINGUEZ TOMORROW.
[2025-04-06 19:45] VITALS: BP 138/96
[2025-04-07] VITALS (18 sets, daily range): BP systolic 138–203; BP diastolic 78–105
--- NOTE | 2025-04-07 04:49 | NUR ---
SHIFT SUMMARY RICHARD WAS A/O X4 ON ASSESSMENT. REPORTING HIGH PAIN WHICH IS RESPONSIVE TO MEDS. PT ABLE TO WIGGLE TOES WITH GOOD CAP REFIL TO AFFECTED LEG. DENIES SOB, CHEST PAIN, OR NAUSEA. PT KEPT BED REST AND NPO TONIGHT. NO ACUTE EVENTS OR NOTED CHANGES TO PT CONDITION.
--- NOTE | 2025-04-07 08:10 | NUR ---
pt woke up in pain, she states she's behind on her chronic pain meds so it's out of control, gave 2mg dilaudid with some relief, pt is very tearful about events that happened yesterday, offered encouragment, and reassurance, a/ox4, pleasant and cooperative with care, follows commands well, lungs are clear t/o, resp even and unlabored, no cough noted, hrr, cap refill and good sensation to right foot, piv to lac site is clear and patent, infusing lr as ordered, btx4, abd flat soft nontender, voids via bedpan at this time, skin c/w/d, maew, except right leg, deborah, call light in reach.
[2025-04-07] MEDS ORDERED: BREYNA 160-4.10.3 GM PO (08:39)
[2025-04-07] MEDS ORDERED: CeFAZolin Sodium 2,000 MG in NS 100 ML IV SCH (15:35)
--- NOTE | 2025-04-07 15:37 | NUR ---
Pt left via bed for OR.
[2025-04-07] MEDS ORDERED: FentaNYL Citrate 50 MCG/ML 2 ML Injection ONE ×2 (15:38→16:12)
[2025-04-07] MEDS ORDERED: Midazolam HCl 1MG / ML 2ML Vial ONE (15:38)
[2025-04-07] MEDS ORDERED: Bupivacaine 0.5% HCl 5 MG/ML 30MLVIAL ONE (15:39)
[2025-04-07] MEDS ORDERED: EpiNEPhrine 1 MG/1 ML 1ML Vial ONE (15:39)
[2025-04-07] MEDS ORDERED: Bupivacaine 0.5% W/EPI 1:200000 SDV 30 ML Vial ONE (15:57)
--- NOTE | 2025-04-07 16:02 | NUR ---
PATIENT TRANSPORTED TO [facility] VIA BED. AGREES WITH PLANNED SURGERY. DR. DOMINGUEZ IN TO SEE PATIENT AND OBTAIN CONSENT. MO SPA ASSOCIATE AT BEDSIDE TO DO FEMORAL AND POPLATEAL NERVE BLOCK. O2 PLACED AT 6LPM PER AND CONTINUOUS O2 SAT MONITORING. 1548 TIME OUT DONE 1553 PROCEDURE STARTED 1558 PROCEDURE COMPLETED. PT TOLERATED WELL. FAMILY AT BEDSIDE AFTER NERVE BLOCK COMPLETED.
[2025-04-07] MEDS ORDERED: Ondansetron HCl 2 MG / ML 2ML Vial ONE (16:22)
[2025-04-07] MEDS ORDERED: Dexamethasone Sod Phos 10 MG/ML 1ML VIAL ONE (16:22)
[2025-04-07] MEDS ORDERED: Metoclopramide HCl 5MG / ML 2ML Vial ONE (16:22)
[2025-04-07] MEDS ORDERED: Albuterol 2.5 MG/3 ML VIAL INH PRN (16:50)
[2025-04-07] MEDS ORDERED: HYDROmorphone HCl/Pf 1MG SYR IV PRN ×2 (16:50→16:55)
[2025-04-07] MEDS ORDERED: Ondansetron HCl 2 MG / ML 2ML Vial IV PRN (16:50)
[2025-04-07] MEDS ORDERED: FentaNYL Citrate 50 MCG/ML 2 ML Injection IV PRN ×2 (16:50)
[2025-04-07] MEDS ORDERED: Sugammadex Sodium 200 MG/2ML SDV (100 MG/ML) ONE (17:13)
[2025-04-07] MEDS ORDERED: Labetalol HCL 5 MG/ML 4ML Injection (Single Dose) ONE (17:24)
[2025-04-07] MEDS ORDERED: HYDROmorphone HCl/Pf 1MG SYR ONE (17:34)
--- NOTE | 2025-04-07 18:37 | NUR ---
pt returned to room from OR in good condition, family at bedside, awake, alert, speaking about the events of the day, vs b/p a bit high, aware, cap refill<3 sec, foot is warm to touch, bulky dressing in place, c/d/i, call light in reach.
--- NOTE | 2025-04-08 04:32 | NUR ---
SHIFT SUMMARY RICHARD WAS A/OX4 ON ASSESSMENT. PAIN MODERATELY WELL MANAGED W/ PO MEDS. DRESSING C/D/I. SENSATION/ CIRCULATION TO BLE INTACT. DENIES NAUSEA, SOB, CHEST PAIN. NO ACUTE EVENTS OR NOTED CHANGES TO PT CONDITION. PT VOIDING APPROPRIATELY.
[2025-04-08 07:23] VITALS: BP 157/89
[2025-04-08 08:23] LABS: BASOPHILS ABSOLUTE AUTO 0.01 K/mm3 (0.00-0.23); BASOPHILS PERCENT AUTO 0 % (0-2); EOSINOPHILS ABSOLUTE AUTO 0.01 K/mm3 (0.00-0.68); EOSINOPHILS PERCENT AUTO 0 % (0-6); Hematocrit 33.3 % (33.0-51.0); Hemoglobin 11.0 g/dL (11.5-16.0); IMMATURE GRAN ABSOLUTE AUTO 0.02 K/mm3 (0.00-0.10); IMMATURE GRAN PERCENT AUTO 0 % (0-1); LYMPHOCYTES ABSOLUTE AUTO 1.19 K/mm3 (0.84-5.20); LYMPHOCYTES PERCENT AUTO 16 % (21-46); MONOCYTES ABSOLUTE AUTO 0.58 K/mm3 (0.16-1.47); MONOCYTES PERCENT AUTO 8 % (4-13); Mean Corpuscular HGB Conc 33.0 g/dL (31.5-36.5); Mean Corpuscular Volume 89 fL (80-100); NEUTROPHILS ABSOLUTE AUTO 5.67 K/mm3 (1.96-9.15); NEUTROPHILS PERCENT AUTO 76 % (41-73); NRBC ABSOLUTE 0.00 K/mm3 (0.00-0.02); NRBC Auto 0.0 /100 WBC (0.0-0.2); Platelet Count 177 K/mm3 (150-400); RDW Coefficient Variation 14.6 % (11.7-14.2); RDW Standard Deviation 46.6 fL (35.1-46.3)
[2025-04-08 08:41] LABS: Alanine Aminotransfer (ALT/SGP 27.0 U/L (12-78); Albumin, Blood 3.0 g/dL (3.4-5.0); Albumin/Globulin Ratio 0.8 (0.8-1.8); Anion Gap 9.0 mmol/L (3-11); Aspartate Aminotrans (AST/SGOT 26.0 U/L (12-37); Bilirubin, Total 0.3 mg/dL (0.1-1.0); Blood Urea Nitrogen 14.0 mg/dL (8-24); CO2, Blood 27.0 mmol/L (21-32); Calcium, Blood 9.1 mg/dL (8.5-10.1); Chloride, Blood 103.0 mmol/L (98-108); Creatinine, Blood 0.66 mg/dL (0.40-1.00); Globulin, Blood 3.8 g/dL (2.2-4.0); Glucose, Blood 139.0 mg/dL (70-99); Potassium, Blood 3.4 mmol/L (3.5-5.5); Sodium, Blood 136.0 mmol/L (136-145); Total Protein, Blood 6.8 g/dL (6.4-8.2)
[2025-04-08 15:21] VITALS: BP 160/90
[2025-04-08 15:23] VITALS: BP 154/95
--- NOTE | 2025-04-08 17:24 | NUR ---
SHIFT SUMMARY PT WORKED WELL WITH PT TODAY. PRESENTLY TAKING OXYCODONE BASELINE WITH DILAUDID IV FOR BREAKTHROUGH PAIN. DENIES COMPLIANTS. WILL CONTINUE TO MONITOR.
[2025-04-08 19:12] VITALS: BP 138/88
[2025-04-09 04:16] VITALS: BP 144/84
--- NOTE | 2025-04-09 05:07 | NUR ---
NOC SUMMARY- PT PAIN MANAGED ORDERED. PT IS CONCERNED THAT HER BUSPAR IS NOT SCHEDULED AND IS PRN ONLY. PT ALSO VOICED CONCERN ABOUT HER GABAPENTIN HAS NOT BEEN ORDERED. PT TOLERATING PO AND IS VOIDING VIA PUREWICK DEVICE. PT DRESSING C/D/I.
[2025-04-09 07:34] VITALS: BP 162/89
[2025-04-09] MEDS ORDERED: HYDROmorphone HCl/Pf 1MG SYR IV PRN (13:10)
--- NOTE | 2025-04-09 13:15 | NUR ---
PAIN MANAGEMENT SPOKE WITH DR. SANTIAGO REGARDING PAIN MANAGEMENT. OXYCODONE INCREASED AND DILAUDID DECREASED. DISCUSSED PLAN WITH PATIENT.
[2025-04-09] MEDS ORDERED: Formoterol/Mometasone MDI 5/100 mcg 13 GM INH SCH (13:30)
[2025-04-09] MEDS ORDERED: Albuterol HFA200 ACT/6.7 GM INH INH PRN (13:30)
[2025-04-09 15:14] VITALS: BP 160/96
--- NOTE | 2025-04-09 17:00 | NUR ---
URINARY RETENTION PT REPORTS FEELING THE URGE TO VOID BUT UNABLE TO GO. PUREWICK IN PLACE. OOB TO BSC OFFERED. BLADDER SCAN SHOWED 396ML IN THE BLADDER. DR. SANTIAGO NOTIFIED. ORDERS PLACED.
[2025-04-09 19:51] VITALS: BP 165/93
--- NOTE | 2025-04-09 20:10 | NUR ---
SHIFT SUMMARY PT IS POD#2 FROM R ANKLE ORIF. PAIN HAS BEEN WELL MANAGED THIS AFTERNOON WITH OXYCODONE. PT HAS NOT REQUIRED IV DILAUDID SINCE OXYCODONE DOSE WAS INCREASED. PT HAS HAD SOME URINARY RETENTION BUT SHE WAS ABLE TO VOID WITHOUT THE NEED FOR A CATHETER. BEDSIDE REPORT GIVEN TO RALEIGH LINARES.
[2025-04-09] MEDS ORDERED: Enoxaparin 40 MG/0.4 ML SYR SC SCH (20:30)
--- NOTE | 2025-04-10 04:51 | NUR ---
NOC SUMMARY- PT PAIN HAS BEEN MANAGED BETTER THIS SHIFT. PT HAS BEEN ABLE TO REST COMFORTABLY. PT VOIDING VIA PUREWICK DEVICE. PT IS WIGGLING TOES WITH GOOD COLOR AND SENSATION. DRESSING C/D/I. NO NEW ISSUES NOTED.
[2025-04-10 05:58] VITALS: BP 173/91
[2025-04-10 07:08] VITALS: BP 181/86
[2025-04-10] MEDS ORDERED: Lidocaine 4% 1 Patch TOP SCH (09:00)
[2025-04-10] MEDS ORDERED: Ketorolac Tromethamine 15mg Vial IV PRN (09:10)
[2025-04-10 14:33] VITALS: BP 131/75
--- NOTE | 2025-04-10 14:51 | NUR ---
Upon receiving a referral for spiritual care, I visited the patient. She tells me about some events that have already been presented to the Patient Advocate, she shares the ex-rays of her ankle and about their strong Judaism jabari. The patient's spouse, Elvis, is bedside and he eplains about his need to forgive others. I provided prayer for them in their struggle to forgive and for a speedy and infection free recovery. I provided therapeutic listening, reinforced helpful attitudes and perspectives and encouraged self-care. Patient and Elvis showed signs of greater peace. I will continue to remain available.
--- NOTE | 2025-04-10 17:31 | NUR ---
SHIFT SUMMARY PT WORKED WITH PT/OT. TAKING OXYCODONE FOR PAIN WITH NO IV BREAKTHROUGH DOSES FOR THIS SHIFT. DENIES COMPLAINTS. WILL CONTINUE TO MONITOR.
[2025-04-10 19:25] VITALS: BP 135/74
[2025-04-10] MEDS ORDERED: AMLO10 PO (21:24)
[2025-04-10] MEDS ORDERED: SPIR25 PO (21:25)
[2025-04-11 04:22] VITALS: BP 110/73
[2025-04-11 04:49] LABS: BASOPHILS ABSOLUTE AUTO 0.01 K/mm3 (0.00-0.23); BASOPHILS PERCENT AUTO 0 % (0-2); EOSINOPHILS ABSOLUTE AUTO 0.08 K/mm3 (0.00-0.68); EOSINOPHILS PERCENT AUTO 1 % (0-6); Hematocrit 32.3 % (33.0-51.0); Hemoglobin 10.4 g/dL (11.5-16.0); IMMATURE GRAN ABSOLUTE AUTO 0.02 K/mm3 (0.00-0.10); IMMATURE GRAN PERCENT AUTO 0 % (0-1); LYMPHOCYTES ABSOLUTE AUTO 2.08 K/mm3 (0.84-5.20); LYMPHOCYTES PERCENT AUTO 35 % (21-46); MONOCYTES ABSOLUTE AUTO 0.52 K/mm3 (0.16-1.47); MONOCYTES PERCENT AUTO 9 % (4-13); Mean Corpuscular HGB Conc 32.2 g/dL (31.5-36.5); Mean Corpuscular Volume 91 fL (80-100); NEUTROPHILS ABSOLUTE AUTO 3.28 K/mm3 (1.96-9.15); NEUTROPHILS PERCENT AUTO 55 % (41-73); NRBC ABSOLUTE 0.00 K/mm3 (0.00-0.02); NRBC Auto 0.0 /100 WBC (0.0-0.2); Platelet Count 192 K/mm3 (150-400); RDW Coefficient Variation 14.5 % (11.7-14.2); RDW Standard Deviation 48.2 fL (35.1-46.3)
[2025-04-11 05:09] LABS: Alanine Aminotransfer (ALT/SGP 32.0 U/L (12-78); Albumin, Blood 2.8 g/dL (3.4-5.0); Albumin/Globulin Ratio 0.9 (0.8-1.8); Anion Gap 9.0 mmol/L (3-11); Aspartate Aminotrans (AST/SGOT 25.0 U/L (12-37); Bilirubin, Total 0.3 mg/dL (0.1-1.0); Blood Urea Nitrogen 31.0 mg/dL (8-24); CO2, Blood 28.0 mmol/L (21-32); Calcium, Blood 8.8 mg/dL (8.5-10.1); Chloride, Blood 103.0 mmol/L (98-108); Creatinine, Blood 1.05 mg/dL (0.40-1.00); Globulin, Blood 3.2 g/dL (2.2-4.0); Glucose, Blood 143.0 mg/dL (70-99); Potassium, Blood 3.8 mmol/L (3.5-5.5); Sodium, Blood 136.0 mmol/L (136-145); Total Protein, Blood 6.0 g/dL (6.4-8.2)
--- NOTE | 2025-04-11 06:28 | NUR ---
SHIFT SUMMARY POD 4 ORIF R TRIMALEOR FX. A&O X4. PAIN MANAGED WELL PER EMAR. BANDAGE TO RLE C/D/I. PT TOLERATING PO INTAKE. PUREWICK IN PLACE DRAINING TO SUCTION. CONTINUOUS PULSE OX IN PLACE SPO2 97% ON RA. PT RESTING IN BED, RESPIRATIONS EVEN AND UNLABORED. CALL LIGHT WITHIN REACH.
[2025-04-11 07:43] VITALS: BP 141/91
--- NOTE | 2025-04-11 13:15 | NUR ---
The patient is lying in bed and alert. Spouse, Elvis, is bedside and continues vent his frustration about the events that took place earlier. I provided a empathetic listening and prayer which is well received and appeared to have calming effect. I will continue to remain available.
--- NOTE | 2025-04-11 14:44 | NUR ---
REPORT CALLED TO [facility]. PT DC'D VIA W/C TRANSPORT.
== END 2025-04-11 14:50 | DRG 493 ==
LOC: ER 23:28 → SURS 04-06 04:14 → ER 04-06 04:14 → SURS 04-06 08:42
PROVIDERS: Emergency Medicine; Family Medicine; Podiatrist Foot & Ankle Surgery; ADMIT Student in an Organized Health Care Education/Training Program
PROC: 0QSJ35Z Reposition Right Fibula with External Fixation Device, Percutaneous Approach (ICD-10-PCS; 2025-04-06)
PROC: 0QSG35Z Reposition Right Tibia with External Fixation Device, Percutaneous Approach (ICD-10-PCS; 2025-04-06)
PROC: 0QSG04Z Reposition Right Tibia with Internal Fixation Device, Open Approach (ICD-10-PCS; 2025-04-07)
PROC: 3E03329 Introduction of Other Anti-infective into Peripheral Vein, Percutaneous Approach (ICD-10-PCS; 2025-04-07)
PROC: 0QSJ04Z Reposition Right Fibula with Internal Fixation Device, Open Approach (ICD-10-PCS; principal; 2025-04-07 15:00)
DX: S82.851A Displaced trimalleolar fracture of right lower leg, initial encounter for closed fracture (principal); I51.81 Takotsubo syndrome; N17.9 Acute kidney failure, unspecified; I12.9 Hypertensive chronic kidney disease with stage 1 through stage 4 chronic kidney disease, or unspecified chronic kidney disease; N18.30 Chronic kidney disease, stage 3 unspecified; G89.4 Chronic pain syndrome; F41.8 Other specified anxiety disorders; E03.9 Hypothyroidism, unspecified; E87.6 Hypokalemia; E83.42 Hypomagnesemia; G47.00 Insomnia, unspecified; S09.90XA Unspecified injury of head, initial encounter; M32.9 Systemic lupus erythematosus, unspecified; J44.9 Chronic obstructive pulmonary disease, unspecified; R55 Syncope and collapse; E66.9 Obesity, unspecified; Z98.42 Cataract extraction status, left eye; Z98.41 Cataract extraction status, right eye; Z90.710 Acquired absence of both cervix and uterus; Z90.49 Acquired absence of other specified parts of digestive tract; Z98.890 Other specified postprocedural states; Z88.0 Allergy status to penicillin; Z88.2 Allergy status to sulfonamides; Z88.5 Allergy status to narcotic agent; Z88.8 Allergy status to other drugs, medicaments and biological substances; Z79.82 Long term (current) use of aspirin; Z79.899 Other long term (current) drug therapy; W18.30XA Fall on same level, unspecified, initial encounter
CPT/HCPCS: 27818; 36415; 70450; 73610; 76000; 80053; 80320; 82947; 84484; 85025; 85610; 93005; 93010; 93308; 94640; 94664; 94762; 96374; 96375; 96376; 97110; 97112; 97161; 97165; 97530; 97535; 99285-25; A6253; A6590; A9270; C1713; J0169; J0690; J1100; J1171; J1650; J1885; J2250; J2405; J2704; J2765; J3010; J7030; J7120